=== PATIENT | male | born 1990 | race Caucasian/White ===

== ENCOUNTER 2019-12-21 08:48 | Emergency (ER) | payer OTHER, SELFPAY ==
[2019-12-21] VITALS (8 sets, daily range): BP systolic 110–163; BP diastolic 74–90; PULSE 64–99; RESP 18–22; TEMP 36.7–36.9; O2SAT 98–100; BMI 22.1
--- NOTE | 2019-12-21 08:50 | ECG_ITS ---
APPROVED REPORT Exam: Resting ECG HR:78 bpm ECG Measurements Heart Rate 78 AXES WY 124 P 74 QRSd 94 QRS 69 QT 368 T 46 QTc 419 <Conclusion> Sinus rhythm with marked sinus arrhythmia Minimal voltage criteria for LVH, may be normal variant Septal infarct, age undetermined Abnormal ECG Electronically signed by : Valdemar Castaneda, 12/24/2019 21:20:00
--- NOTE | 2019-12-21 08:50 | XR_ITS ---
PROCEDURE: XR CHEST 2V CLINICAL HISTORY: short of breath COMPARISON: No exams were available for comparison FINDINGS: No acute bony abnormalities. The cardiomediastinal silhouette and pulmonary vascularity are within normal limits. The lungs are hyperinflated, compatible with COPD. Bilaterally perihilar mildly increased bronchial wall and interstitial thickening noted, indicative of chronic bronchitis. No demonstrated consolidation, pulmonary vascular congestion or pleural effusion of the visualized lungs. Likely a small calcified nodule/granuloma is present peripherally in right lower lung. IMPRESSION: 1. No acute findings. 2. Possible COPD. Please correlate clinically. Dictated by: Ally Brownlee 12/21/2019 10:02 Electronically signed by Ally Brownlee in [place] 12/21/2019 10:02
--- NOTE | 2019-12-21 09:06 | HMH.EDGENADL ---
ED Disposition Clinical Impression: Tobacco use disorder Dyspnea Qualifiers: Dyspnea type: shortness of breath Qualified Code(s): R06.02 - Shortness of breath Disposition: Home, Self-Care Condition on Discharge: Good Instructions: DI for Shortness of Breath, How to Quit Tobacco Products Additional Instructions: You have been evaluated for shortness of breath. We have not found one particular diagnosis today. It is important that you follow-up with your primary care doctor. Return to the emergency department if you have new or worsening symptoms. Referrals: PCP,No [Primary Care Provider] - Time of Disposition: 12:05 - Critical Care Critical Care Time: No Attestation: On 12/21/19, the high probability of a clinically significant, sudden or life threatening deterioration of the following system(s) required my full and direct attention, intervention and personal management. The time I documented below is in addition to time spent performing reported procedures but includes the following listed in this critical care notation. Medical Decision Making - Medical Records Medical records reviewed: Yes: I reviewed the patient's medical records. - Ramone Inquiry Pt receiving controlled substance: No Vital Signs: 12/21/19 08:48 12/21/19 09:04 12/21/19 09:29 Temperature 98.5 F Temperature Source Oral Pulse Rate Pulse Rate [Left Radial] 99 H 78 75 Respiratory Rate 18 18 20 Blood Pressure Blood Pressure [Right Arm] 163/90 H 135/87 122/74 Blood Pressure Mean [Right Arm] 114 103 90 Blood Pressure Source Blood Pressure Source [Right Arm] Automatic Cuff Automatic Cuff Automatic Cuff Blood Pressure Position Blood Pressure Position [Right Arm] Sitting Supine Supine 02 Sat by Pulse Oximetry 100 98 99 Oxygen Delivery Method Room Air Room Air Room Air 12/21/19 09:59 12/21/19 10:30 12/21/19 10:59 Temperature Temperature Source Pulse Rate Pulse Rate [Left Radial] 66 74 66 Respiratory Rate 20 18 22 Blood Pressure Blood Pressure [Right Arm] 110/83 128/84 137/85 Blood Pressure Mean [Right Arm] 92 98 102 Blood Pressure Source Blood Pressure Source [Right Arm] Automatic Cuff Automatic Cuff Automatic Cuff Blood Pressure Position Blood Pressure Position [Right Arm] Supine Supine Supine 02 Sat by Pulse Oximetry 99 98 99 Oxygen Delivery Method Room Air Room Air Room Air 12/21/19 11:30 12/21/19 12:19 Temperature 98.0 F Temperature Source Oral Pulse Rate 64 Pulse Rate [Left Radial] 64 Respiratory Rate 18 18 Blood Pressure 130/77 Blood Pressure [Right Arm] 130/77 Blood Pressure Mean [Right Arm] 94 Blood Pressure Source Automatic Cuff Blood Pressure Source [Right Arm] Automatic Cuff Blood Pressure Position Sitting Blood Pressure Position [Right Arm] Supine 02 Sat by Pulse Oximetry 99 Oxygen Delivery Method Room Air Room Air - Lab Data Lab Results 12/21/19 08:50: WBC 9.5, RBC 5.14, Hgb 16.7, Hct 49.1, MCV 95.6 H, MCH 32.5 H, MCHC 34.0, RDW 13.3, Plt Count 264, MPV 7.4, Neut % (Auto) 69.7, Lymph % (Auto) 23.8, [place] % (Auto) 6.1, Eos % (Auto) 0.2, Baso % (Auto) 0.3, Neut # (Auto) 6.6, Lymph # (Auto) 2.3, [place] # (Auto) 0.6, Eos # (Auto) 0.0, Baso # (Auto) 0.0 12/21/19 08:50: D-Dimer < 100 12/21/19 08:50: Sodium 141, Potassium 4.1, Chloride 104, Carbon Dioxide 27, Anion Gap 14.1, BUN 11, Creatinine 0.70, Estimated Creat Clear 125, Estimated GFR 133, Est GFR ( Amer) 161, Glucose 111 H, Calcium 9.3, Troponin I < 0.01 12/21/19 10:43: Troponin I < 0.01 Result diagrams: 12/21/19 08:50 12/21/19 08:50 Orders (Tests/Meds): ED MEDICATIONS Discontinued Medications Generic Name Dose Route Start Last Admin Trade Name Kang PRN Reason Stop Dose Admin Aspirin 325 mg 12/21/19 08:51 12/21/19 09:05 Aspirin 325mg Tablet PO 12/21/19 08:52 Not Given ONCE ONE Aspirin 324 mg 12/21/19 09:04 12/21/19 09:04 Aspirin 81mg Chewable Tablet PO 12/21/19 09:05 324
[2019-12-21 09:15] LABS: Basophils % 0.3 % (0.1-2.0); Eosinophils % 0.2 % (0.1-12.0); Hematocrit 49.1 % (42.0-52.0); Hemoglobin 16.7 g/dL (14.1-18.0); Lymphocytes # 2.3 K/mm3 (0.7-4.5); Lymphocytes % 23.8 % (10-50); Mean Corpuscular Hemoglobin 32.5 pg (27.0-31.2); Mean Corpuscular Volume 95.6 fl (80-94); Mean Platelet Volume 7.4 fl (7.4-10.4); Monocytes # 0.6 K/mm3 (0.1-1.0); Monocytes % 6.1 % (1.7-9.3); Neutrophils # 6.6 K/mm3 (1.8-7.8); Neutrophils % 69.7 % (37.0-80.0); Platelet Count 264 K/mm3 (142-424); Red Blood Count 5.14 M/mm3 (4.60-6.20); Red Cell Distribution Width 13.3 % (11.5-17.5); White Blood Count 9.5 K/mm3 (4.8-10.8)
[2019-12-21 09:16] LABS: Chloride 104 mmol/L (98-107); Sodium 141 mmol/L (136-145)
[2019-12-21 09:17] LABS: Potassium 4.1 mmoL/L (3.5-5.1)
[2019-12-21 09:19] LABS: Blood Urea Nitrogen 11 mg/dl (9-20); Creatinine Clearance Estimated 125 mL/min (50-200); Estimated Glomerular Filt Rate 133 ml/min (>60); GFR (African American) 161 ML/MIN (>60)
[2019-12-21 09:20] LABS: Anion Gap 14.1 mEq/L (5-15); Calcium 9.3 mg/dl (8.4-10.2); Carbon Dioxide 27 mmol/L (22.0-30.0); Glucose 111 mg/dl (74-100)
[2019-12-21 09:32] LABS: Troponin I < 0.01 ng/ml (0.00-0.034)
[2019-12-21 09:34] LABS: D-Dimer < 100 ng/mL (0-400)
--- NOTE | 2019-12-21 09:50 | PC.NURSE ---
PT WITH RAD AT THIS TIME.
[2019-12-21 11:29] LABS: Troponin I < 0.01 ng/ml (0.00-0.034)
== END 2019-12-21 12:20 | disposition home or self-care (01) ==
PROVIDERS: Emergency Provider Emergency Medicine
DX: R06.02 Shortness of breath (principal); F17.210 Nicotine dependence, cigarettes, uncomplicated
CPT/HCPCS: 71046; 80048; 84484; 85025; 85378; 93005; 99284

== ENCOUNTER → 2019-12-22 15:40 | Outpatient (CLI) | payer OTHER, SELFPAY | PROVIDERS: PCP Family Medicine; Visit Provider Family Medicine | DX: R06.02 Shortness of breath (principal); R00.2 Palpitations; Z82.49 Family history of ischemic heart disease and other diseases of the circulatory system | CPT/HCPCS: 93225; 93226 ==

== ENCOUNTER 2019-12-27 03:44 | Emergency (ER) | payer OTHER, SELFPAY ==
[2019-12-27 03:53] VITALS: BP 152/86; PULSE 100; RESP 17; TEMP 36.9; O2SAT 100; BMI 22.1
--- NOTE | 2019-12-27 03:54 | HMH.EDGENADL ---
ED Disposition Clinical Impression: Dyspnea Qualifiers: Dyspnea type: shortness of breath Qualified Code(s): R06.02 - Shortness of breath Disposition: Home, Self-Care Condition on Discharge: Good Instructions: DI for Shortness of Breath Additional Instructions: Do not use Wellbutrin or inhaler until you speak with your physician today. Call your physician when their office opens for further instruction. Additional instructions for SHORTNESS OF BREATH: See your physician as soon as possible for further evaluation. Return immediately if worsening shortness of breath or if vomiting, chest pain, fever, coughing of blood, or passing out. Referrals: Valdemar Benitez MD [Primary Care Provider] - - Critical Care Critical Care Time: No Attestation: On 12/27/19, the high probability of a clinically significant, sudden or life threatening deterioration of the following system(s) required my full and direct attention, intervention and personal management. The time I documented below is in addition to time spent performing reported procedures but includes the following listed in this critical care notation. Medical Decision Making - Medical Records Medical records reviewed: Yes: I reviewed the patient's medical records. - Ramone Inquiry Pt receiving controlled substance: No Vital Signs: 12/27/19 03:53 Temperature 98.4 F Temperature Source Oral Pulse Rate [Right Brachial] 100 H Respiratory Rate 17 Blood Pressure [Right Arm] 152/86 H Blood Pressure Mean [Right Arm] 108 Blood Pressure Source [Right Arm] Automatic Cuff Blood Pressure Position [Right Arm] Sitting 02 Sat by Pulse Oximetry 100 Oxygen Delivery Method Room Air - Lab Data Lab results reviewed: Yes: I reviewed the patient's lab results. Lab Results 12/27/19 04:25: WBC 11.3 H, RBC 4.96, Hgb 16.1, Hct 46.1, MCV 93.0, MCH 32.5 H, MCHC 34.9, RDW 13.3, Plt Count 267, MPV 7.1 L, Neut % (Auto) 62.9, Lymph % (Auto) 26.4, [place] % (Auto) 9.7 H, Eos % (Auto) 0.8, Baso % (Auto) 0.3, Neut # (Auto) 7.1, Lymph # (Auto) 3.0, [place] # (Auto) 1.1 H, Eos # (Auto) 0.1, Baso # (Auto) 0.0 12/27/19 04:25: Sodium 143, Potassium 3.7, Chloride 106, Carbon Dioxide 28, Anion Gap 12.7, BUN 12, Creatinine 0.70, Estimated Creat Clear 125, Estimated GFR 133, Est GFR ( Amer) 161, Glucose 116 H, Calcium 9.4, Troponin I < 0.01 Result diagrams: 12/27/19 04:25 12/27/19 04:25 Orders (Tests/Meds): ORDERS Category Date Time Status Chest XR 2 view (NOT portable) [XR chest 2V] Stat Exams 12/27/19 04:02 Taken - ECG Data Tracing #1 EKG interpreted by Mina Rodríguez MD: Rhythm: sinus Rate: 84 Four States: normal Ectopy: none Conduction: normal ST Segment Changes: Nonspecific T Wave Changes: Nonspecific Q Waves: none - Reevaluation(s) Time: 05:10 Reevaluation #1: Patient states he feels improved. Medical Decision Narrative: My impression is that the patient's symptoms are most likely related to anxiety. I have advised him to not use Wellbutrin or albuterol inhaler until he contacts his physician today. General Adult HPI - General Stated complaint: SOA;Shaky Time Seen by Provider: 12/27/19 03:54 - History of Present Illness HPI narrative: The patient states that he was awakened at 2 AM by shortness of breath, tingling of his tongue, shakiness, and scratchy throat, although he says his throat does not hurt when he swallows. Says he has had a cough for the past couple of days. No fever. No chest pain or discomfort. He was seen in this emergency department on 12/21/2019 for shortness of breath. He had a thorough work-up at that time which was unremarkable. He followed up with his primary care doctor. He says he was also experiencing rapid heartbeat and had a Holter monitor done on Wednesday, but does not yet have results. He was started on Wellbutrin for smoking cessation and was given a prescription for a metered-dose inhaler. He says he has been us
--- NOTE | 2019-12-27 04:02 | XR_ITS ---
PROCEDURE: XR CHEST 2V CLINICAL HISTORY: soa Shortness of air, smoker COMPARISON: CT ABDPELW CT ABD PELVIS W/ CONTRAST from 01/05/2017 CR XR CHEST 2V from 12/21/2019 FINDINGS: The cardiomediastinal silhouette and pulmonary vascularity are within normal limits. The lungs are clear without infiltrates, suspicious nodules, or pleural effusions. There is calcified granuloma in the right lower lobe laterally. No acute bony findings IMPRESSION: No acute findings. Dictated b Judah Monahan MD 12/27/2019 07:46 Judah Monahan MD in [place] 12/27/2019 07:46
--- NOTE | 2019-12-27 04:04 | ECG_ITS ---
APPROVED REPORT Exam: Resting ECG HR:84 bpm ECG Measurements Heart Rate 84 AXES IA 142 P 83 QRSd 94 QRS 75 QT 362 T 36 QTc 427 <Conclusion> Normal sinus rhythm Nonspecific ST and T wave abnormality Abnormal ECG Electronically signed by : Sanjiv Montalvo, 12/29/2019 16:12:16
[2019-12-27 04:34] LABS: Basophils % 0.3 % (0.1-2.0); Eosinophils # 0.1 K/mm3 (0.0-0.4); Eosinophils % 0.8 % (0.1-12.0); Hematocrit 46.1 % (42.0-52.0); Hemoglobin 16.1 g/dL (14.1-18.0); Lymphocytes % 26.4 % (10-50); Mean Corpuscular HGB Conc 34.9 g/dL (31.8-35.4); Mean Corpuscular Hemoglobin 32.5 pg (27.0-31.2); Mean Platelet Volume 7.1 fl (7.4-10.4); Monocytes # 1.1 K/mm3 (0.1-1.0); Monocytes % 9.7 % (1.7-9.3); Neutrophils # 7.1 K/mm3 (1.8-7.8); Neutrophils % 62.9 % (37.0-80.0); Platelet Count 267 K/mm3 (142-424); Red Blood Count 4.96 M/mm3 (4.60-6.20); Red Cell Distribution Width 13.3 % (11.5-17.5); White Blood Count 11.3 K/mm3 (4.8-10.8)
[2019-12-27 04:37] LABS: Chloride 106 mmol/L (98-107); Potassium 3.7 mmoL/L (3.5-5.1); Sodium 143 mmol/L (136-145)
[2019-12-27 04:40] LABS: Anion Gap 12.7 mEq/L (5-15); Blood Urea Nitrogen 12 mg/dl (9-20); Calcium 9.4 mg/dl (8.4-10.2); Carbon Dioxide 28 mmol/L (22.0-30.0); Creatinine Clearance Estimated 125 mL/min (50-200); Estimated Glomerular Filt Rate 133 ml/min (>60); GFR (African American) 161 ML/MIN (>60); Glucose 116 mg/dl (74-100)
[2019-12-27 04:58] LABS: Troponin I < 0.01 ng/ml (0.00-0.034)
[2019-12-27 05:41] VITALS: BP 125/82; PULSE 79; RESP 17; TEMP 36.9; O2SAT 100
== END 2019-12-27 05:43 | disposition home or self-care (01) ==
PROVIDERS: Emergency Provider Emergency Medicine; PCP Family Medicine
DX: F41.9 Anxiety disorder, unspecified (principal); F17.210 Nicotine dependence, cigarettes, uncomplicated
CPT/HCPCS: 71046; 80048; 84484; 85025; 93005; 99282; 99283

== ENCOUNTER 2019-12-27 17:14 | Emergency (ER) | payer OTHER, SELFPAY ==
--- NOTE | 2019-12-27 17:07 | ECG_ITS ---
APPROVED REPORT Exam: Resting ECG HR:102 bpm ECG Measurements Heart Rate 102 AXES RI 126 P 83 QRSd 94 QRS 75 QT 350 T 18 QTc 456 <Conclusion> Sinus tachycardia Voltage criteria for left ventricular hypertrophy Nonspecific ST and T wave abnormality Abnormal ECG Electronically signed by : Valdemar Castaneda, 12/30/2019 08:31:02
[2019-12-27 17:14] VITALS: BP 153/86; PULSE 94; RESP 20; TEMP 36.9; O2SAT 100; BMI 22.1
--- NOTE | 2019-12-27 17:27 | XR_ITS ---
PROCEDURE: XR CHEST PORTABLE CLINICAL HISTORY: cough COMPARISON: No exams were available for comparison FINDINGS: The cardiomediastinal silhouette and pulmonary vascularity are within normal limits. No lobar consolidation or collapse. Faint nodularity is noted in the right lower lung zone possibly due to summation artifact from overlapping vessels and may be confirmed with follow-up. No acute bony abnormalities. IMPRESSION: No acute finding. Minimal nodularity right lung base. Consider follow-up to confirm stability Dictated b Judah Monahan MD 12/27/2019 18:30 Judah Monahan MD in [place] 12/27/2019 18:30
[2019-12-27 17:44] VITALS: BP 144/74; PULSE 89; O2SAT 99
--- NOTE | 2019-12-27 17:53 | HMH.EDDIZZ ---
ED Disposition Clinical Impression: Vasovagal syncope, Generalized anxiety disorder Disposition: Home, Self-Care Condition on Discharge: Good Instructions: DI for Syncope in Adults (Fainting) Referrals: Valdemar Benitez MD [Primary Care Provider] - Time of Disposition: 19:03 - Critical Care Critical Care Time: No Attestation: On 12/27/19, the high probability of a clinically significant, sudden or life threatening deterioration of the following system(s) required my full and direct attention, intervention and personal management. The time I documented below is in addition to time spent performing reported procedures but includes the following listed in this critical care notation. Medical Decision Making - Medical Records Medical records reviewed: Yes: I reviewed the patient's medical records. - Ramone Inquiry Pt receiving controlled substance: No Vital Signs: 12/27/19 17:14 12/27/19 17:44 12/27/19 18:25 Temperature 98.5 F Temperature Source Oral Pulse Rate [Right] 94 H 89 88 Respiratory Rate 20 18 Blood Pressure [Right Arm] 153/86 H 144/74 H 126/73 Blood Pressure Mean [Right Arm] 108 97 90 Blood Pressure Source [Right Arm] Automatic Cuff Automatic Cuff Automatic Cuff 02 Sat by Pulse Oximetry 100 99 100 Oxygen Delivery Method Room Air Room Air Room Air - Lab Data Lab Results 12/27/19 17:41: WBC 11.4 H, RBC 4.97, Hgb 16.1, Hct 46.2, MCV 93.1, MCH 32.3 H, MCHC 34.7, RDW 13.4, Plt Count 285, MPV 7.4, Neut % (Auto) 65.5, Lymph % (Auto) 26.5, [place] % (Auto) 7.5, Eos % (Auto) 0.2, Baso % (Auto) 0.2, Neut # (Auto) 7.5, Lymph # (Auto) 3.0, [place] # (Auto) 0.9, Eos # (Auto) 0.0, Baso # (Auto) 0.0 12/27/19 17:41: D-Dimer < 100 12/27/19 17:41: Sodium 140, Potassium 3.6, Chloride 103, Carbon Dioxide 27, Anion Gap 13.6, BUN 8 L D, Creatinine 0.80, Estimated Creat Clear 109, Estimated GFR 114, Est GFR ( Amer) 138, Glucose 90 D, Calcium 9.8, Troponin I < 0.01 Result diagrams: 12/27/19 17:41 12/27/19 17:41 Orders (Tests/Meds): ED MEDICATIONS Generic Name Dose Route Start Last Admin Trade Name Freq PRN Reason Stop Dose Admin Sodium Chloride 1,000 mls @ 999 mls/hr 12/27/19 17:45 12/27/19 17:45 Sod Chlor 0.9% 1000ml Bag IV 12/27/19 18:45 999 mls/hr .Q1H1M OTIS Administration Sodium Chloride 10 ml 12/27/19 17:28 Sodium Chloride 0.9% 10ml Vial IV 01/26/20 17:27 NEEDED PRN to Dilute Lorazepam inj Discontinued Medications Generic Name Dose Route Start Last Admin Trade Name Freq PRN Reason Stop Dose Admin Lorazepam 1 mg 12/27/19 17:28 12/27/19 17:44 Ativan 2mg/Ml Vial IV 12/27/19 17:29 1 mg ONCE ONE Administration ORDERS Category Date Time Status Troponin I Q3H Lab 12/27/19 20:30 Ordered Troponin I Q3H Lab 12/27/19 23:30 Ordered - Radiology Data #1 Image(s): Chest Image Reviewed: Yes I reviewed the patient's radiology results, Yes I have reviewed radiologist's interpretation IMPRESSION: No acute finding. Minimal nodularity right lung base. Consider follow-up to confirm stability - ECG Data Tracing #1 ECG initial impression date: 12/27/19 ECG initial impression time: 17:09 - Reevaluation(s) Time: 19:02 Reevaluation #1: On reevaluation, the patient is feeling better. He is much less anxious. Repeat neurologic exam is normal. Patient is ambulatory without any dizziness. Patient is to follow-up with PCP. Given strict return precautions. Verbalized understanding. Medical Decision Narrative: This is a 29-year-old male presenting to the emergency department with a syncopal episode. Patient has been having these symptoms since earlier today. He was taken off his Wellbutrin secondary to the symptoms. Patient is alert and appropriate at this time. Normal neurologic exam. Patient is very anxious on my initial examination. I do believe this could be contributing to his symptoms. Work-up will be initiated. Dizzy HPI
[2019-12-27 17:54] LABS: Basophils % 0.2 % (0.1-2.0); Eosinophils % 0.2 % (0.1-12.0); Hematocrit 46.2 % (42.0-52.0); Hemoglobin 16.1 g/dL (14.1-18.0); Lymphocytes % 26.5 % (10-50); Mean Corpuscular HGB Conc 34.7 g/dL (31.8-35.4); Mean Corpuscular Hemoglobin 32.3 pg (27.0-31.2); Mean Corpuscular Volume 93.1 fl (80-94); Mean Platelet Volume 7.4 fl (7.4-10.4); Monocytes # 0.9 K/mm3 (0.1-1.0); Monocytes % 7.5 % (1.7-9.3); Neutrophils # 7.5 K/mm3 (1.8-7.8); Neutrophils % 65.5 % (37.0-80.0); Platelet Count 285 K/mm3 (142-424); Red Blood Count 4.97 M/mm3 (4.60-6.20); Red Cell Distribution Width 13.4 % (11.5-17.5); White Blood Count 11.4 K/mm3 (4.8-10.8)
[2019-12-27 18:02] LABS: Anion Gap 13.6 mEq/L (5-15); Blood Urea Nitrogen 8 mg/dl (9-20); Calcium 9.8 mg/dl (8.4-10.2); Carbon Dioxide 27 mmol/L (22.0-30.0); Chloride 103 mmol/L (98-107); Creatinine Clearance Estimated 109 mL/min (50-200); Estimated Glomerular Filt Rate 114 ml/min (>60); GFR (African American) 138 ML/MIN (>60); Glucose 90 mg/dl (74-100); Potassium 3.6 mmoL/L (3.5-5.1); Sodium 140 mmol/L (136-145)
[2019-12-27 18:19] LABS: Troponin I < 0.01 ng/ml (0.00-0.034)
[2019-12-27 18:25] VITALS: BP 126/73; PULSE 88; RESP 18; O2SAT 100
[2019-12-27 18:37] LABS: D-Dimer < 100 ng/mL (0-400)
[2019-12-27 19:10] VITALS: BP 128/74; PULSE 65; RESP 16; TEMP 36.6; O2SAT 98
== END 2019-12-27 19:12 | disposition home or self-care (01) ==
PROVIDERS: Emergency Provider Emergency Medicine; PCP Family Medicine
DX: R55 Syncope and collapse (principal); F41.9 Anxiety disorder, unspecified; F17.210 Nicotine dependence, cigarettes, uncomplicated
CPT/HCPCS: 71045; 80048; 84484; 85025; 85378; 93005; 96365; 96375; 99284

== ENCOUNTER 2019-12-29 13:53 | Emergency (ER) | payer OTHER, SELFPAY ==
--- NOTE | 2019-12-29 14:10 | HMH.EDUTC ---
[facility] [place] Clinical Impression: Vertigo Disposition: Home, Self-Care Condition on Discharge: Good Instructions: DI for Vertigo Prescriptions: Meclizine HCl [Meclizine 25mg Tab] 25 mg PO TID PRN 10 Days #30 tab PRN Reason: Dizziness Transmission Status: Pending to [id number] Referrals: Valdemar Benitez MD [Primary Care Provider] - Time of Disposition: 14:22 Medical Decision Making - Ramone Inquiry Pt receiving controlled substance: No Vital Signs: 12/29/19 14:14 Temperature 98.3 F Temperature Source Oral Pulse Rate [Right Brachial] 79 Respiratory Rate 20 Blood Pressure [Right Arm] 133/81 Blood Pressure Mean [Right Arm] 98 Blood Pressure Source [Right Arm] Automatic Cuff Blood Pressure Position [Right Arm] Sitting 02 Sat by Pulse Oximetry 98 Oxygen Delivery Method Room Air - Lab Data Lab results reviewed: Yes: I reviewed the patient's lab results. Medical Decision Narrative: Patient has been seen at ER 3 times in past week, each time with normal cardiac workup. Has seen PCP and is awaiting Holter monitor results. I have reviewed records from these visits. [facility] [place] - General Stated complaint: light-headed Time Seen by Provider: 12/29/19 14:10 - History of Present Illness Provider Complaint: Sent home from work today with lightheadedness. States that it has actually been going on for a while. Has seen PCP and had Holter monitor, labs. Isn't sure of results yet. Has had some mild nasal congestion and cough. No headache. Feels off balance and just not right. Dizzy when he bends forward. Dizzy when he rolls over. No fever. Denies ear pain, sore throat, vomiting, diarrhea. No known PMH. No problems with diabetes, blood pressure that he is aware of. - Related Data Previous Rx's Medication Instructions Recorded Meclizine HCl [Meclizine 25mg Tab] 25 mg PO TID PRN 10 Days #30 tab 12/29/19 Allergies Allergy/AdvReac Type Severity Reaction Status Date / Time No Known Allergies Allergy Verified 08/26/18 23:06 [facility] History - Hepatitis A Screen Attestation statement:: This patient has been screened for Hepatitis A risk factors. Medical History: Denies:: Cancer, Diabetes Mellitus Type 1, Diabetes Mellitus Type 2, MRSA Amputation: No Fractures: No - Social History Smoking Status: Current every day smoker Tobacco Type: cigarettes # Packs/Day (cigarettes): 2 Alcohol Intake: never Occupational Status: employed Housing: house Household Members: significant other Family Hx:: Cancer, Diabetes ROS Obtained: Yes All systems reviewed & no additional complaints - Respiratory Respiratory: Yes as per HPI, Yes cough - Neurologic Neurologic: Reports unsteadiness, Reports dizziness Physical Exam - General General appearance: alert, in no apparent distress - Head Head exam: atraumatic, normocephalic, normal inspection - Eye Eye exam: Present: normal appearance, PERRL, EOMI - ENT ENT exam: Present: normal exam, normal oropharynx, mucous membranes moist, TM's normal bilaterally, normal external ear exam - Neck Neck exam: Present: normal inspection, full ROM, trachea midline. Absent: meningismus, lymphadenopathy - Chest Chest inspection: Present: normal inspection, symmetric chest wall rise. Absent: tenderness - Respiratory Respiratory exam: Present: normal lung sounds bilaterally. Absent: respiratory distress - Cardiovascular Cardiovascular exam: Present: regular rate, normal rhythm. Absent: JVD - Abdominal Exam Abdominal exam: Present: soft, normal bowel sounds. Absent: distention, tenderness, guarding - Extremities Exam Extremities exam: Present: normal inspection, full ROM, normal capillary refill. Absent: calf tenderness - Back Exam Back exam: Present: normal inspection. Absent: tenderness - Neurological Exam Neurological exam: Present: alert, oriented X3 - Psychiatric Psychiatric exam: Present: normal affect, normal mood
[2019-12-29 14:14] VITALS: BP 133/81; PULSE 79; RESP 20; TEMP 36.8; O2SAT 98; BMI 22.1
[2019-12-29 14:33] VITALS: BP 133/81; PULSE 79; RESP 20; TEMP 36.8; O2SAT 98
== END 2019-12-29 14:35 | disposition home or self-care (01) ==
PROVIDERS: Emergency Provider Physician Assistant; PCP Family Medicine
DX: R42 Dizziness and giddiness (principal); F17.210 Nicotine dependence, cigarettes, uncomplicated
CPT/HCPCS: 99201

== ENCOUNTER → 2020-01-17 07:44 | Outpatient (CLI) | payer OTHER, SELFPAY ==
--- NOTE | 2020-01-17 | CA_ITS ---
APPROVED REPORT Exam: Exercise Treadmill Technologist: Ibeth Yancey, Ht: 5 ft 3 in Wt: 128 lbs BSA: 1.60 m2 HR: 68 bpm BP: 122/71 mmHg Rhythm: NSR,VOLTAGE CRITERIA FOR LVH,ST-T ABNS INFERIORLY AND LATERALLY Medical History Medical History: SVT, Smoking Medications: Metoprolol,,,,, Cardiac Risk Factors: Smoking, FHX of CAD Stress Test Details Test: Roberto HR Resting HR: 75 bpm Max Heart Rate (APMHR): 191 bpm Max HR Achieved: 147 bpm Target HR (85% APMHR): 162 bpm % of APMHR: 76 Recovery HR: 118 bpm BP Resting BP: 122.0/71.0 mmHg Max BP: 148.0/76.0 mmHg Recovery BP: 142.0/76.0 mmHg ECG Resting ECG: NSR,VOLTAGE CRITERIA FOR LVH,ST-T ABNS INFERIORLY AND LATERALLY Clinical Exercise duration: 10:09 min Highest Stage Achieved: Exercise capacity: 12.8 METs Stress ECG Conclusion EXERCISED 10:09 ON ROBERTO PROTOCOL STOPPING DUE TO SOA AND LEG FATIGUE. MAX HR 147 BPM WHICH IS 77% OF PM FOR AGE. MAX BP 148/76. METS = 12.8. TEST STOPPED DUE TO SOA AND LEG FATIGUE. FLEETING CP AT PEAK EXERCISE. NO ARRHYTHMIA/ECTOPY. EXAGGERATION OF BASELINE T-T ABNS WITH EXERCISE. ATYPICAL CHEST PAIN. EQUIVOCAL EKG CHANGES. BLUNTED HEART RATE RESPONSE ON METOPROLOL. GXT ONLY. NO IMAGING. Test Summary REST . . . . . . . Standing REST . . . . . . . Sitting REST 03:58 0.0 0.0 75 . 122/ 71 . . Stage 1 01:00 10.0 1.7 95 . . . . Stage 1 02:00 10.0 1.7 96 . . . . Stage 1 03:00 10.0 1.7 92 . 130/ 80 . . Stage 2 01:00 12.0 2.5 100 . . . . Stage 2 02:00 12.0 2.5 99 . . . . Stage 2 03:00 12.0 2.5 104 . 140/ 80 . . Stage 3 01:00 14.0 3.4 113 . . . . Stage 3 02:00 14.0 3.4 115 . . . . Stage 3 03:00 14.0 3.4 120 . 148/ 76 . . Stage 4 01:00 16.0 4.2 139 . . . . Stage 4 01:09 16.0 4.2 142 . . . Stop exercise at 10:09 RECOVERY 01:00 0.0 0.0 115 . . . . RECOVERY 02:00 0.0 0.0 91 . 142/ 76 . . RECOVERY 03:00 0.0 0.0 81 . 130/ 87 . . RECOVERY 04:00 0.0 0.0 82 . 139/ 81 . . RECOVERY 05:00 0.0 0.0 75 . 122/ 76 . . RECOVERY 05:19 0.0 0.0 77 . 122/ 76 . . Electronically signed by : Valdemar Castaneda, 01/20/2020 07:11:27
--- NOTE | 2020-01-17 07:47 | CA_ITS ---
APPROVED REPORT EXAM: Comprehensive 2D, Doppler, and color-flow Echocardiogram Planer Off Bearer: Rhea Nelson RVT Ht: 5 ft 3 in Wt: 128lbs BSA: 1.60 BP: 145/78 mmHg Indications: SVT ON HOLTER, SOA,DIZZINESS,PALPS,SMOKER 2D Dimensions LVOT 1.97 cm (M/F) 1.5-2.5 M-Mode Dimensions RVDd 2.95 cm (0.9-2.6) LVDd 4.19 cm (3.5-5.7) LVDs 2.68 cm (3.5-5.7) IVSd 0.91 cm (0.6-1.1) PWd 0.94 cm (0.6-1.1) EF (Teich) 66.10% FS 36.00% EDV (Teich) 78.10 mL ESV (Teich) 26.50 mL LV Diastology E/A Ratio 1.66 Mitral Valve MV A Velocity 64.00 (40-130 cm/s) Left Ventricle Left atrium is normal size, left ventricle is normal size, there is no concentric left ventricular hypertrophy, visually estimated ejection fraction 55% with no regional wall motion abnormality, diastolic parameters are within normal range. Right Ventricle Right atrium and right ventricular normal size and contractility. Aortic Valve Aortic valve is grossly normal, there is no aortic stenosis or aortic insufficiency. Mitral Valve Mitral valve is grossly normal, there is trace mitral regurgitation. Tricuspid Valve Tricuspid valve is grossly normal, there is trace tricuspid regurgitation. Tricuspid regurgitation jet velocity is inadequate for calculation of the right ventricular systolic pressure. Pulmonic Valve Pulmonic valve is grossly normal. Great Vessels Aortic root is normal size. Pericardium No significant pericardial effusion noted. Conclusion 1. Normal left ventricular size, preserved left ventricular systolic function, visually estimated ejection fraction 55% with no regional wall motion abnormality, diastolic parameters are within normal range. 2. Trace mitral and tricuspid regurgitation. 3. No significant pericardial effusion noted. Electronically signed by : Parker Russ, 01/18/2020 09:53:49
== END ==
PROVIDERS: PCP Family Medicine; Visit Provider Nurse Practitioner
DX: I47.1 Supraventricular tachycardia (principal); R06.02 Shortness of breath
CPT/HCPCS: 93017; 93306; 94060; 94726; 94729

== ENCOUNTER 2020-03-11 16:42 | Emergency (ER) | payer OTHER, SELFPAY ==
--- NOTE | 2020-03-11 17:00 | HMH.EDUTC ---
[facility] [place] Disposition Clinical Impression: Sinusitis Qualifiers: Sinusitis location: unspecified location Chronicity: acute Recurrence: non-recurrent Qualified Code(s): J01.90 - Acute sinusitis, unspecified Disposition: Home, Self-Care Condition on Discharge: Good Instructions: Sinusitis, DI for Sinusitis Additional Instructions: Drink plenty of fluids. Take tylenol or ibuprofen for pain or fever. Take the medications as directed. Follow up with your regular doctor. GO TO THE ER FOR ANY WORSENING SYMPTOMS FOLLOW THE DIRECTIONS ON THE COVID-19 HAND OUT THAT WE GAVE YOU REGARDING SELF-ISOLATION UNTIL YOU KNOW YOUR COVID-19 RESULTS Prescriptions: Azithromycin [Z-Rene 250mg Tab*] 250 mg PO UD DOSE PK #6 tab Transmission Status: Received by [facility] #[id number] Referrals: Valdemar Benitez MD [Primary Care Provider] - Forms: Work/School Release Time of Disposition: 17:24 Medical Decision Making - Medical Records Medical records reviewed: No: I reviewed the patient's medical records. - Ramone Inquiry Pt receiving controlled substance: No Vital Signs: 03/11/20 17:02 03/11/20 17:26 Temperature 98.9 F 98.9 F Temperature Source Oral Oral Pulse Rate 78 Pulse Rate [Radial] 78 Respiratory Rate 16 16 Blood Pressure 120/84 Blood Pressure [Right Arm] 120/84 Blood Pressure Mean [Right Arm] 96 Blood Pressure Source Automatic Cuff Blood Pressure Source [Right Arm] Automatic Cuff Blood Pressure Position Sitting Blood Pressure Position [Right Arm] Sitting 02 Sat by Pulse Oximetry 100 Oxygen Delivery Method Room Air Room Air Orders (Tests/Meds): ORDERS Category Date Time Status Covid-19 Nasal PCR Sendout Juan Stat Lab 03/11/20 17:[address] [facility] [place] HPI - General Stated complaint: ears, throat Time Seen by Provider: 03/11/20 17:00 - History of Present Illness Provider Complaint: He states that for the past 3 days he has had sinus congestion and a dry cough. He thinks that he has a sinus infection. - Related Data Home Medications Medication Instructions Recorded Confirmed metoprolol succinate 25 mg 25 mg PO DAILY tab 02/12/20 02/12/20 tablet,extended release 24 hr Previous Rx's Medication Instructions Recorded Azithromycin [Z-Rene 250mg Tab*] 250 mg PO UD DOSE PK #6 tab 03/11/20 Allergies Allergy/AdvReac Type Severity Reaction Status Date / Time No Known Allergies Allergy Verified 02/12/20 09:08 [facility] History - Hepatitis A Screen Attestation statement:: This patient has been screened for Hepatitis A risk factors. I have reviewed the patient's past medical history: Yes Medical History: Reports:: Palpitations Denies:: Cancer, Diabetes Mellitus Type 1, Diabetes Mellitus Type 2, MRSA Amputation: No Fractures: No - Social History Smoking Status: Current every day smoker Tobacco Type: cigarettes # Packs/Day (cigarettes): 2 Alcohol Intake: never Occupational Status: employed Housing: house Household Members: significant other Family Hx:: Cancer, Diabetes Comment: Mother-Palpitations ROS Obtained: Yes All systems reviewed & no additional complaints - Constitutional Constitutional: Reports chills, Denies fever(s), Reports poor appetite, Reports malaise - Eyes Eyes: Denies eye discharge - ENT Ears, Nose, Mouth, and Throat: Reports as per HPI - Cardiovascular Cardiovascular: Denies chest pain - Respiratory Respiratory: No chest congestion, Yes cough Physical Exam - General General appearance: alert, in no apparent distress - Head Head exam: atraumatic, normocephalic, normal inspection - Eye Eye exam: Present: normal appearance, PERRL, EOMI - ENT ENT exam: Present: mucous membranes moist, normal external ear exam - Expanded ENT Exam TM/Canal exam: Bilateral TM: erythema, bulging Mouth exam: Present: normal external inspection Teeth exam: Present: normal inspection Throat exam: Present: tonsillar erythema, tons
[2020-03-11 17:02] VITALS: BP 120/84; PULSE 78; RESP 16; TEMP 37.2; O2SAT 100; BMI 23.0
[2020-03-11 17:26] VITALS: BP 120/84; PULSE 78; RESP 16; TEMP 37.2; O2SAT 100
== END 2020-03-11 17:29 | disposition home or self-care (01) ==
PROVIDERS: Emergency Provider Nurse Practitioner Family; PCP Family Medicine
DX: J01.90 Acute sinusitis, unspecified (principal); Z20.828 Contact with and (suspected) exposure to other viral communicable diseases; R00.2 Palpitations; F17.210 Nicotine dependence, cigarettes, uncomplicated
CPT/HCPCS: 99201; U0003; U0004

== ENCOUNTER 2020-05-22 11:16 | Emergency (ER) | payer OTHER, SELFPAY ==
[2020-05-22 11:25] VITALS: BP 131/66; PULSE 76; RESP 18; TEMP 36.8; O2SAT 99; BMI 24.1
--- NOTE | 2020-05-22 11:42 | HMH.EDUTC ---
[facility] [place] [facility] [place] Clinical Impression: Bronchitis Otitis media Qualifiers: Otitis media type: unspecified Laterality: bilateral Qualified Code(s): H66.93 - Otitis media, unspecified, bilateral Disposition: Home, Self-Care Condition on Discharge: Good Instructions: Middle Ear Infection, Acute Bronchitis Additional Instructions: *Monitor Temp, Over the counter Motrin or Tylenol as directed/as needed Tylenol every 4 hours and Motrin every 6 hours (as long as your family doctor has told you that you can take it) for fever or pain. and straight to ER if unable to lower temp less than 101.0 after medication given *Warm salt water gargles may help to soothe the throat *Throat Lozenges *Warm fluids like tea with honey may help to soothe the throat *Sleep elevated *Humidifier/Vaporizer Take medication as prescribed Return if needed Follow up IMMEDIATELY for new or worsening symptoms or no Noticeable improvement over the next 48-72 hours. 911 for difficulty breathing or swallowing Prescriptions: Cefdinir [Omnicef 300mg Capsule] 300 mg PO BID #20 cap Transmission Status: Received by [id number] Referrals: Valdemar Benitez MD [Primary Care Provider] - As needed Time of Disposition: 11:53 Medical Decision Making - Ramone Inquiry Pt receiving controlled substance: No Ramone was queried for this patient: No Vital Signs: 05/22/20 11:25 05/22/20 11:58 Temperature 98.2 F 98.2 F Temperature Source Oral Pulse Rate 76 Pulse Rate [Right Brachial] 76 Respiratory Rate 18 18 Blood Pressure 131/66 Blood Pressure [Right Arm] 131/66 Blood Pressure Mean [Right Arm] 87 Blood Pressure Source [Right Arm] Automatic Cuff Blood Pressure Position [Right Arm] Sitting 02 Sat by Pulse Oximetry 99 Oxygen Delivery Method Room Air [facility] [place] [facility] [place]PI - General Stated complaint: ear pain, congestion Time Seen by Provider: 05/22/20 11:42 Mode of Arrival: Ambulatory Source of Information: Patient Limitations: No Limitations Description of Symptoms (Recalled from Triage Doc. by RN): PATIENT C/O CHEST CONGESTION AND BILATERAL EAR PAIN X 2 DAYS HEENT Symptoms (Recalled from RN notes): Yes Resp Symptoms (Recalled from RN notes): No Skin Symptoms (Recalled from RN notes): No MS Symptoms (Recalled from RN notes): No Functional Status (Recalled from RN notes): WNL - History of Present Illness Provider Complaint: Patient states that he is an everyday smoker and usually gets bronchitis around this time every year State that she has been having non productive cough, sinus pressure and drainage along feeling of pressure in both ears that has got worse over the last couple of days States that today he was still feeling like that so he come in Denies known exposure to COVID - Related Data Home Medications Medication Instructions Recorded Confirmed metoprolol succinate 25 mg 25 mg PO DAILY tab 02/12/20 05/22/20 tablet,extended release 24 hr Previous Rx's Medication Instructions Recorded Cefdinir [Omnicef 300mg Capsule] 300 mg PO BID #20 cap 05/22/20 Allergies Allergy/AdvReac Type Severity Reaction Status Date / Time No Known Allergies Allergy Verified 02/12/20 09:08 - Worker's Comp Is this a Worker's Comp case?: No [facility] History - Hepatitis A Screen Drug use history?: No High risk sexual behaviors?: No History of sexually transmitted infection?: No Currently employed?: No Childcare worker?: No Do you have indoor plumbing?: Yes Do you have electricity?: Yes Attestation statement:: This patient has been screened for Hepatitis A risk factors. Medical History: Reports:: Palpitations Denies:: Cancer, Diabetes Mellitus Type 1, Diabetes Mellitus Type 2, MRSA Amputation: No Fractures: No - Social History Smoking Status: Current every day smoker Tobacco Type: cigarettes # Packs/Day (cigarettes): 1 Alcohol Intake: never Occupational Status: other Housing: house Household Members: significant
[2020-05-22 11:58] VITALS: BP 131/66; PULSE 76; RESP 18; TEMP 36.8; O2SAT 99
== END 2020-05-22 12:00 | disposition home or self-care (01) ==
PROVIDERS: Emergency Provider Nurse Practitioner; PCP Family Medicine
DX: J20.9 Acute bronchitis, unspecified (principal); H66.93 Otitis media, unspecified, bilateral; R00.2 Palpitations; F17.210 Nicotine dependence, cigarettes, uncomplicated
CPT/HCPCS: 99201

== ENCOUNTER 2020-05-25 23:05 | Emergency (ER) | payer OTHER, BC, SELFPAY ==
[2020-05-25 23:05] VITALS: BP 167/93; PULSE 100; RESP 16; TEMP 36.9; O2SAT 99; BMI 21.6
--- NOTE | 2020-05-25 23:18 | XR_ITS ---
PROCEDURE: XR CHEST 2V CLINICAL HISTORY: cp COMPARISON: CR XR CHEST 2V from 12/21/2019 CR XR CHEST 2V from 12/27/2019 CR XR CHEST PORTABLE from 12/27/2019 FINDINGS: The cardiomediastinal silhouette and pulmonary vascularity are within normal limits. The lungs are clear without infiltrates, suspicious nodules, or pleural effusions. There couple tiny calcified right hilar nodes and there is a small calcified granuloma right costophrenic angle and this was seen previously. No acute bony abnormalities. IMPRESSION: No acute findings. Dictated by: Dr. Timothy Schilling MD 05/26/2020 09:36 Dr. Timothy Schilling MD in [place] 05/26/2020 09:36
--- NOTE | 2020-05-25 23:25 | ECG_ITS ---
APPROVED REPORT Exam: Resting ECG HR:86 bpm ECG Measurements Heart Rate 86 AXES VT 132 P 79 QRSd 88 QRS 74 QT 350 T 32 QTc 418 Conclusion Normal sinus rhythm with sinus arrhythmia Left ventricular hypertrophy with repolarization abnormality Abnormal ECG Electronically signed by : Valdemar Castaneda, 05/26/2020 13:34:16
--- NOTE | 2020-05-25 23:29 | HMH.EDCP ---
ED Disposition Clinical Impression: Costalchondritis Disposition: Home, Self-Care Condition on Discharge: Good Additional Instructions: You were seen on an emergency basis. It is very important that you follow up with your primary care provider and/or specialist as we discussed within 2 days. All labs and imaging were obtained and interpreted here to rule out life threatening emergencies, but your final results should be reviewed by your primary doctor at your follow up appointment. Please return to the emergency department if any of your symptoms worsen, or if they do not improve as we discussed. Prescriptions: Naproxen Sodium [Anaprox Ds] 550 mg PO BID #20 tab Transmission Status: Pending to [id number] Referrals: Valdemar Benitez MD [Primary Care Provider] - - Critical Care Critical Care Time: No Attestation: On , the high probability of a clinically significant, sudden or life threatening deterioration of the following system(s) required my full and direct attention, intervention and personal management. The time I documented below is in addition to time spent performing reported procedures but includes the following listed in this critical care notation. Medical Decision Making - Medical Records Medical records reviewed: Yes: I reviewed the patient's medical records. - Ramone Inquiry Pt receiving controlled substance: No Vital Signs: 05/25/20 23:05 05/25/20 23:35 05/26/20 00:48 Temperature 98.5 F Temperature Source Oral Pulse Rate [Left Radial] 100 H 85 86 Respiratory Rate 16 16 16 Blood Pressure [Right Arm] 167/93 H 134/79 135/71 Blood Pressure Mean [Right Arm] 117 97 92 Blood Pressure Source [Right Arm] Automatic Cuff Automatic Cuff Automatic Cuff Blood Pressure Position [Right Arm] Supine Supine Supine 02 Sat by Pulse Oximetry 99 98 98 Oxygen Delivery Method Room Air Room Air Room Air - Lab Data Lab Results 05/25/20 23:05: WBC 13.2 H, RBC 5.53, Hgb 17.4, Hct 51.6, MCV 93.4, MCH 31.4 H, MCHC 33.6, RDW 13.4, Plt Count 290, MPV 7.8, Neut % (Auto) 54.1, Lymph % (Auto) 36.2, [place] % (Auto) 8.1, Eos % (Auto) 0.7, Baso % (Auto) 0.8, Neut # (Auto) 7.1, Lymph # (Auto) 4.8 H, [place] # (Auto) 1.1 H, Eos # (Auto) 0.1, Baso # (Auto) 0.1 05/25/20 23:05: Sodium 139, Potassium 3.4 L, Chloride 100, Carbon Dioxide 30, Anion Gap 12.4, BUN 14, Creatinine 0.90, Estimated Creat Clear 101, Estimated GFR 100, Est GFR ( Amer) 121, Glucose 86, Calcium 10.0, Total Bilirubin 0.7, Direct Bilirubin 0.2, Conjugated Bilirubin 0.0, Indirect Bilirubin 0.5, Unconjugated Bilirubin 0.5, AST 26, ALT 20, Alkaline Phosphatase 71, Troponin I < 0.01, Total Protein 8.2, Albumin 4.9 05/26/20 02:00: Troponin I < 0.01 Result diagrams: 05/25/20 23:05 05/25/20 23:05 Orders (Tests/Meds): ED MEDICATIONS Discontinued Medications Generic Name Dose Route Start Last Admin Trade Name Leonardoq PRN Reason Stop Dose Admin Aspirin 324 mg 05/25/20 23:18 05/25/20 23:15 Aspirin 81mg Chewable Tablet PO 05/25/20 23:19 324 mg ONCE ONE Administration Ketorolac Tromethamine 30 mg 05/25/20 23:18 05/25/20 23:24 Ketorolac 30mg/Ml Vial IV 05/25/20 23:19 30 mg ONCE ONE Administration ORDERS Category Date Time Status Chest XR 2 view (NOT portable) [XR chest 2V] Stat Exams 05/25/20 23:18 Taken Troponin I Q3H Lab 05/26/20 06:00 Ordered Medical Decision Narrative: 29-year-old male presenting with chest pain. Nontoxic afebrile, hemodynamically stable, oxygenating well on room air. cxr negative for acute disease. EKG nonischemic without arrhythmia. White blood cell count does show mild leukocytosis but patient had recent diagnosis of bronchitis. CMP unremarkable. Troponins are flat. Asymptomatic after 30 mg of IV Toradol. Clinically, this is costochondritis. PERC negative. Prescribe Anaprox and have him follow-up with PCP. Chest Pain HPI - General Chief Complaint: Chest Pain Stated Complaint: C
[2020-05-25 23:35] VITALS: BP 134/79; PULSE 85; RESP 16; O2SAT 98
[2020-05-26] LABS: Basophils # 0.1 K/mm3 (0-0.2); Basophils % 0.8 % (0.1-2.0); Eosinophils # 0.1 K/mm3 (0.0-0.4); Eosinophils % 0.7 % (0.1-12.0); Hematocrit 51.6 % (42.0-52.0); Hemoglobin 17.4 g/dL (14.1-18.0); Lymphocytes # 4.8 K/mm3 (0.7-4.5); Lymphocytes % 36.2 % (10-50); Mean Corpuscular HGB Conc 33.6 g/dL (31.8-35.4); Mean Corpuscular Hemoglobin 31.4 pg (27.0-31.2); Mean Corpuscular Volume 93.4 fl (80-94); Mean Platelet Volume 7.8 fl (7.4-10.4); Monocytes # 1.1 K/mm3 (0.1-1.0); Monocytes % 8.1 % (1.7-9.3); Neutrophils # 7.1 K/mm3 (1.8-7.8); Neutrophils % 54.1 % (37.0-80.0); Platelet Count 290 K/mm3 (142-424); Red Blood Count 5.53 M/mm3 (4.60-6.20); Red Cell Distribution Width 13.4 % (11.5-17.5); White Blood Count 13.2 K/mm3 (4.8-10.8)
[2020-05-26 00:04] LABS: Alanine Aminotransferase 20 U/L (12-78); Albumin Level 4.9 g/dl (3.5-5.0); Alkaline Phosphatase 71 U/L (38-126); Anion Gap 12.4 mEq/L (5-15); Aspartate Amino Transferase 26 U/L (17-59); Bilirubin,Direct 0.2 mg/dl (0.0-0.4); Bilirubin,Indirect 0.5 mg/dL (0.0-0.9); Bilirubin,Total 0.7 mg/dl (0.2-1.3); Bilirubin,Unconjugated 0.5 mg/dL (0.0-1.1); Blood Urea Nitrogen 14 mg/dl (9-20); Carbon Dioxide 30 mmol/L (22.0-30.0); Chloride 100 mmol/L (98-107); Creatinine Clearance Estimated 101 mL/min (50-200); Estimated Glomerular Filt Rate 100 ml/min (>60); GFR (African American) 121 ML/MIN (>60); Glucose 86 mg/dl (74-100); Potassium 3.4 mmoL/L (3.5-5.1); Sodium 139 mmol/L (136-145); Total Protein,Serum 8.2 g/dl (6.3-8.2)
[2020-05-26 00:16] LABS: Troponin I < 0.01 ng/ml (0.00-0.034)
[2020-05-26 00:48] VITALS: BP 135/71; PULSE 86; RESP 16; O2SAT 98
[2020-05-26 02:33] LABS: Troponin I < 0.01 ng/ml (0.00-0.034)
[2020-05-26 03:02] VITALS: BP 121/70; PULSE 73; RESP 14; TEMP 36.7; O2SAT 97
== END 2020-05-26 03:05 | disposition home or self-care (01) ==
PROVIDERS: Emergency Provider Physician Assistant; PCP Family Medicine
DX: M94.0 Chondrocostal junction syndrome [Tietze] (principal); I48.91 Unspecified atrial fibrillation; R00.2 Palpitations; F17.210 Nicotine dependence, cigarettes, uncomplicated; Z79.899 Other long term (current) drug therapy
CPT/HCPCS: 71046; 80048; 80076; 84484; 85025; 93005; 96374; 99283

== ENCOUNTER 2020-05-27 09:47 | Emergency (ER) | payer OTHER, BC, SELFPAY ==
[2020-05-27 09:50] VITALS: BP 118/67; PULSE 89; RESP 20; TEMP 36.9; O2SAT 99; BMI 21.6
--- NOTE | 2020-05-27 10:13 | HMH.EDUTC ---
[facility] [place] Disposition Clinical Impression: Low back pain Qualifiers: Chronicity: unspecified Back pain laterality: left Sciatica presence: without sciatica Qualified Code(s): M54.5 - Low back pain Disposition: Home, Self-Care Condition on Discharge: Good Instructions: Low Back Pain, DI for Low Back Pain, Methocarbamol, DI for Muscle Spasm Additional Instructions: *Naproxen as prescribed with meal as needed for pain/inflammation *Not additional anti-inflammatory like motrin, aleve, advil with the above amount of Naproxen. You can still take Tylenol every 4 hours as needed if you need something else for pain *Ice 20 minutes every 2 hours for the first 48 hours after the initial injury followed by moist heat every 20 minutes 3-4 times a day to affected area *Muscle relaxer as prescribed as needed for muscle spasms but remember, it WILL cause drowsiness You cannot take it and drive, operate machinery or care for small children. *Keep this area active, no movement leads to more stiffness, However take it easy and avoid heavy lifting pushing or pulling *Follow up with you family doctor if no improvement for further treatment Return if needed Straight to ER If any life threatening symptoms Prescriptions: methocarbamoL [Methocarbamol 500mg Tablet] 500 mg PO BID PRN #10 tab PRN Reason: Muscle Spasm Transmission Status: Received by [id number] Referrals: Valdemar Benitez MD [Primary Care Provider] - As needed Time of Disposition: 10:24 Medical Decision Making - Ramone Inquiry Pt receiving controlled substance: No Ramone was queried for this patient: No Vital Signs: 05/27/20 09:50 05/27/20 10:30 Temperature 98.5 F 98.5 F Temperature Source Oral Pulse Rate 89 Pulse Rate [Right Brachial] 89 Respiratory Rate 20 20 Blood Pressure 118/67 Blood Pressure [Right Arm] 118/67 Blood Pressure Mean [Right Arm] 84 Blood Pressure Source [Right Arm] Automatic Cuff Blood Pressure Position [Right Arm] Sitting 02 Sat by Pulse Oximetry 99 Oxygen Delivery Method Room Air [facility] [place] HPI - General Stated complaint: back pain Time Seen by Provider: 05/27/20 10:13 Mode of Arrival: Ambulatory Source of Information: Patient Limitations: No Limitations Description of Symptoms (Recalled from Triage Doc. by RN): PATIENT C/O LEFT LOWER BACK PAIN THAT STARTED LAST NIGHT AND WAS WORSE THIS MORNING HEENT Symptoms (Recalled from RN notes): No Resp Symptoms (Recalled from RN notes): No Skin Symptoms (Recalled from RN notes): No MS Symptoms (Recalled from RN notes): Yes Functional Status (Recalled from RN notes): WNL - History of Present Illness Provider Complaint: Patient state that he was moving some furniture yesterday and bent over to sweet pickled fruit maker something and felt a pull in his left lower back area States that he feels like he is having muscle spasms in his left lower back Denies loss of control of bowel or bladder denies radiation of pain State that pain is worse when he moves or bends over - Related Data Previous Rx's Medication Instructions Recorded methocarbamoL [Methocarbamol 500mg 500 mg PO BID PRN #10 tab 05/27/20 Tablet] Allergies Allergy/AdvReac Type Severity Reaction Status Date / Time No Known Allergies Allergy Verified 02/12/20 09:08 - Worker's Comp Is this a Worker's Comp case?: No [facility] History - Hepatitis A Screen Drug use history?: No High risk sexual behaviors?: No History of sexually transmitted infection?: No Currently employed?: No Childcare worker?: No Do you have indoor plumbing?: Yes Do you have electricity?: Yes Attestation statement:: This patient has been screened for Hepatitis A risk factors. I have reviewed the patient's past medical history: Yes Medical History: Reports:: Palpitations Denies:: Cancer, Diabetes Mellitus Type 1, Diabetes Mellitus Type 2, MRSA Amputation: No Fractures: No - Social History Smoking Status: Current every day smoker Tobacco Type: cigarett
[2020-05-27 10:30] VITALS: BP 118/67; PULSE 89; RESP 20; TEMP 36.9; O2SAT 99
[2020-05-28 21:02] LABS: Apearance,Urine Clear (Clear); Bilirubin,Urine Negative (Negative); Blood, Urine Trace (Negative); Color,Urine Yellow (Yellow); Glucose,Urine (UA) Negative (Negative); Ketones,Urine Negative (Negative); Protein,Urine Trace (Negative); Specific Gravity, Urine 1.025 (1.005-1.030); UTC Leukocyte Esterase,Urine Negative (Negative); UTC Nitrate,Urine Negative (Negative); Urobilinogen,Urine 2 EU/dl (0.2)
== END 2020-05-27 10:31 | disposition home or self-care (01) ==
PROVIDERS: Emergency Provider Nurse Practitioner; PCP Family Medicine
DX: M54.5 Low back pain (principal); X50.0XXA Overexertion from strenuous movement or load, initial encounter; R00.2 Palpitations; F17.210 Nicotine dependence, cigarettes, uncomplicated
CPT/HCPCS: 81003; 99202; G0463

== ENCOUNTER → 2020-06-13 06:42 | Outpatient (CLI) | payer OTHER, BC, SELFPAY | PROVIDERS: PCP Family Medicine; Visit Provider Nurse Practitioner Family | DX: R06.02 Shortness of breath (principal); R42 Dizziness and giddiness; R94.31 Abnormal electrocardiogram [ECG] [EKG] | CPT/HCPCS: 75574; Q9967 ==

== ENCOUNTER → 2020-07-15 06:20 | Outpatient (CLI) | payer BC, SELFPAY ==
[2020-07-15 07:11] VITALS: BMI 23.0
--- NOTE | 2020-07-15 09:21 | CT_ITS ---
PROCEDURE: CT ANGIO CORONARY ARTERY CLINCAL INDICATION: Chest pain COMPARISON: No exams were available for comparison TECHNIQUE: Initially the patient arrived on 06/[address] coronary angiography. Bradycardia was attempted with a total 15 mg of IV metoprolol. Patient's heart rate fluctuated from 42-92. Patient did seem anxious. Oral sedation was not able to be given as the patient did not have a stock driver. Images were obtained but were less than optimal quality due to irregular heart rate. The patient was instructed to come back for repeat exam. 10 mg Valium p.o. was given the night of and the morning the procedure. On the day of the repeat exam, patient's heart rate was in the 90s. 50 mg p.o. metoprolol was given with overall no significant change in heart rate. A total of 10 mg of IV metoprolol was then given. The patient's heart rate did come down to the mid 60s. During the exam the patient's heart rate fluctuated from the mid 60s to low 90s. Two runs were performed. A 3rd run was not performed due to the contrast load. FINDINGS: There is considerable misregistration artifact. Both sets of data are interrogated. The coronary artery anatomy is normal. The left main coronary artery has an unremarkable appearance. The LAD has an unremarkable appearance. First diagonal also appears unremarkable. The diagnosed distal to this region however not well demonstrated. Grossly unremarkable appearance of the proximal aspect of the circumflex artery. The right coronary artery originates in its proper location. Misregistration artifact however inhibits optimal evaluation of the RCA. There is a tricuspid aortic valve. Normal heart size. No evidence of central pulmonary embolus. There is a 3 mm subpleural nodule in the left lower lobe nonspecific. There are mild degenerative changes in the thoracic spine. IMPRESSION: Limited exam due to cardiac dysrhythmia. The left main coronary artery and LAD have an unremarkable appearance as does the proximal aspect of the circumflex. The RCA is not adequately interrogated due to misregistration artifact. Dictated by: Judah Monahan MD 07/17/2020 09:25 Judah Monahan MD in [place] 07/17/2020 09:25
== END ==
PROVIDERS: PCP Family Medicine; Visit Provider Physician Assistant
DX: R07.9 Chest pain, unspecified (principal); R42 Dizziness and giddiness; R06.02 Shortness of breath; R94.31 Abnormal electrocardiogram [ECG] [EKG]
CPT/HCPCS: 75574

== ENCOUNTER → 2020-07-24 12:57 | Outpatient (CLI) | payer OTHER, BC, SELFPAY ==
[2020-07-24 13:11] LABS: Basophils % 0.3 % (0.1-2.0); Eosinophils # 0.1 K/mm3 (0.0-0.4); Eosinophils % 0.8 % (0.1-12.0); Hematocrit 48.8 % (42.0-52.0); Hemoglobin 15.8 g/dL (14.1-18.0); Lymphocytes # 2.4 K/mm3 (0.7-4.5); Lymphocytes % 25.4 % (10-50); Mean Corpuscular HGB Conc 32.4 g/dL (31.8-35.4); Mean Corpuscular Hemoglobin 30.4 pg (27.0-31.2); Mean Corpuscular Volume 93.8 fl (80-94); Mean Platelet Volume 7.1 fl (7.4-10.4); Monocytes # 0.7 K/mm3 (0.1-1.0); Monocytes % 7.6 % (1.7-9.3); Neutrophils # 6.2 K/mm3 (1.8-7.8); Neutrophils % 65.9 % (37.0-80.0); Platelet Count 302 K/mm3 (142-424); Red Blood Count 5.21 M/mm3 (4.60-6.20); Red Cell Distribution Width 13.1 % (11.5-17.5); White Blood Count 9.4 K/mm3 (4.8-10.8)
[2020-07-24 13:57] LABS: Chloride 104 mmol/L (98-107); Potassium 5.1 mmoL/L (3.5-5.1); Sodium 140 mmol/L (136-145)
[2020-07-24 14:00] LABS: Blood Urea Nitrogen 8 mg/dl (9-20); Estimated Glomerular Filt Rate 114 ml/min (>60); GFR (African American) 138 ML/MIN (>60)
[2020-07-24 14:01] LABS: Anion Gap 13.1 mEq/L (5-15); Calcium 10.1 mg/dl (8.4-10.2); Carbon Dioxide 28 mmol/L (22.0-30.0); Glucose 118 mg/dl (74-100)
== END ==
PROVIDERS: Visit Provider Internal Medicine
DX: R07.9 Chest pain, unspecified (principal)
CPT/HCPCS: 36415; 80048; 85025

== ENCOUNTER 2020-07-25 08:31 | Day surgery (SDC) | payer OTHER, BC, SELFPAY ==
[2020-07-25] VITALS (15 sets, daily range): BP systolic 90–165; BP diastolic 41–100; PULSE 78–103; RESP 12–21; TEMP 36.8; O2SAT 95–99; BMI 22.8
--- NOTE | 2020-07-25 | IR_ITS ---
APPROVED REPORT Patient Location: Outpatient Reservations Sales Supervisor: JOSEPH Beltre RT (R) PROCEDURES Selective coronary angiogram INDICATION Abnormal CTA, Nondiagnostic noninvasive testing with persistent chest pain Informed consent was obtained prior to the procedure. COMPLICATIONS NONE Estimated Blood Loss: LESS THAN 10 ML TECHNIQUE One percent lidocaine used to anesthetize the right anterior aspect of the wrist. The right radial artery was accessed via the Seldinger technique. A 6 Ecuadorean sheath was placed in the right radial artery. 2.5 mg of verapamil, 800 mcg of nitroglycerin, 1mg Lidocaine and 5000 U Heparin were given through the arterial sheath. The trap catheter was also used to perform left heart catheterization, left ventriculogram and selective coronary angiogram. At the end of the procedure the sheath was removed good hemostasis was achieved using Traclet band, patient was transferred to the postop holding area in stable condition. ANGIOGRAPHIC RESULTS The left main artery Normal The left anterior descending artery Normal The circumflex artery Codominant normal The right coronary artery Codominant normal The LAWSON ventriculogram reveals Not performed The left ventricular end-diastolic pressure Not measured IMPRESSION Normal coronary arteries PLAN 1. Evaluation of noncardiac chest pain Electronically signed by : Bobby Myrick, 07/25/2020 10:27:11
== END 2020-07-25 13:21 | disposition home or self-care (01) ==
LOC: CATHLAB 08:33
PROVIDERS: PCP Family Medicine; Visit Provider Internal Medicine
DX: R07.9 Chest pain, unspecified (principal); R94.31 Abnormal electrocardiogram [ECG] [EKG]; R55 Syncope and collapse; Z72.0 Tobacco use; I10 Essential (primary) hypertension; I48.91 Unspecified atrial fibrillation
CPT/HCPCS: 93458; 99152; C1725; C1769; J1644; Q9967

== ENCOUNTER 2020-07-25 22:11 | Emergency (ER) | payer BC, OTHER, SELFPAY ==
[2020-07-25 22:17] VITALS: BP 153/89; PULSE 93; RESP 16; TEMP 36.8; O2SAT 98; BMI 23.0
--- NOTE | 2020-07-25 22:37 | CT_ITS ---
Procedure: CT ANGIO UE RT CLINICAL HISTORY: cold numb hand after heart cath COMPARISON: No exams were available for comparison TECHNIQUE: IV Contrast: 100ml Isovue 370 Axial images obtained with sagittal and coronal reformats. All CT scans at the facility use one or more dose reduction, viz: automated exposure control, ma/kV adjustment per patient size (including targeted exams where dose is matched to indication, i.e. head), or iterative reconstruction technique. FINDINGS: The right brachiocephalic artery, right subclavian artery, right brachial artery and proximal and mid radial and ulnar arteries have an unremarkable appearance. The radial and ulnar arteries are very small distally and are not well delineated at the wrist felt to be related to bolus timing and the small caliber of the vessels. If the wrist is the area of clinical concern then duplex ultrasound may provide further evaluation. No bony or soft tissue abnormalities apparent. IMPRESSION: No acute findings. No occlusions or dissections or significant stenosis apparent. The radial and ulnar arteries are very small at wrist and not well delineated and may be better evaluated with duplex sonography if clinically warranted. Dictated by: Judah Monahan MD 07/26/2020 05:42 Judah Monahan MD in [place] 07/26/2020 05:42
--- NOTE | 2020-07-25 22:38 | HMH.EDGENADL ---
ED Disposition Clinical Impression: Paresthesia Disposition: Home, Self-Care Condition on Discharge: Good Instructions: DI for Cellulitis -- Adult Referrals: Valdemar Benitez MD [Primary Care Provider] - - Critical Care Critical Care Time: No Attestation: On 07/25/20, the high probability of a clinically significant, sudden or life threatening deterioration of the following system(s) required my full and direct attention, intervention and personal management. The time I documented below is in addition to time spent performing reported procedures but includes the following listed in this critical care notation. Medical Decision Making - Medical Records Medical records reviewed: Yes: I reviewed the patient's medical records. - Ramone Inquiry Pt receiving controlled substance: No Vital Signs: 07/25/20 22:17 07/25/20 22:42 Temperature 98.2 F Temperature Source Oral Pulse Rate [Left] 93 H 94 H Respiratory Rate 16 16 Blood Pressure [Left Arm] 153/89 H 140/92 H Blood Pressure Mean [Left Arm] 110 108 Blood Pressure Source [Left Arm] Automatic Cuff Automatic Cuff Blood Pressure Position [Left Arm] Sitting Supine 02 Sat by Pulse Oximetry 98 99 Oxygen Delivery Method Room Air Room Air - Lab Data Lab Results 07/25/20 23:06: WBC 13.0 H D, RBC 5.16, Hgb 15.6, Hct 48.5, MCV 93.9, MCH 30.1, MCHC 32.1, RDW 13.2, Plt Count 318, MPV 7.1 L, Neut % (Auto) 68.0, Lymph % (Auto) 26.5, [place] % (Auto) 4.3, Eos % (Auto) 0.9, Baso % (Auto) 0.5, Neut # (Auto) 8.8 H, Lymph # (Auto) 3.4, [place] # (Auto) 0.6, Eos # (Auto) 0.1, Baso # (Auto) 0.1 07/25/20 23:06: Sodium 143, Potassium 3.6 D, Chloride 106, Carbon Dioxide 30, Anion Gap 10.6, BUN 7 L, Creatinine 0.70, Estimated Creat Clear 130, Estimated GFR 133, Est GFR ( Amer) 161, Glucose 122 H, Calcium 9.8 Result diagrams: 07/25/20 23:06 07/25/20 23:06 Orders (Tests/Meds): ED MEDICATIONS Discontinued Medications Generic Name Dose Route Start Last Admin Trade Name Kang PRN Reason Stop Dose Admin Morphine Sulfate 4 mg 07/25/20 23:49 07/25/20 23:52 Morphine 4mg/Ml Syringe IV 07/25/20 23:50 4 mg ONCE ONE Administration ORDERS Category Date Time Status CT angio UE RT Stat Cat Scan 07/25/20 22:37 Ordered Medical Decision Narrative: I evaluated the patient in cqjr-[id number]-scal exam. On my exam he was in no acute distress nontoxic-appearing he did have cooler extremity in the right hand than the left and decreased sensation. Does have a radial pulse on initial exam. However due to possibility of vascular injury CTA of upper extremity was obtained. CTA shows no arterial occlusion or injury, on reexam he does have increased strength in the hand. 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 Given strict return precautions for symptoms if they get worse over the weekend General Adult HPI - General Chief complaint: Extremity Problem,Nontraumatic Stated complaint: Heart Cath 0304 R Arm Numb Time Seen by Provider: 07/25/20 22:30 Mode of Arrival: Ambulatory Limitations: No Limitations Description of Symptoms (Recalled from ER Triage Doc. by RN): Pt had a right radial heart cath this morning and states his right arm has been numb since, pt has palpable radial pulse and normal cap refil. - History of Present Illness HPI narrative: 29-year-old male presents with right hand numbness. He says that he had a heart cath this morning and since then his hand has been cold and numb and now he has numbness in his mid and upper extremity on the right side. He says he does not have decreased weakness. It was a heart cath that entrance was through his right radial artery. Denies fever chills active bleeding or any other injuries Onset (ago): day(s) (1) Radiatio
[2020-07-25 22:42] VITALS: BP 140/92; PULSE 94; RESP 16; O2SAT 99
[2020-07-25 23:13] LABS: Basophils # 0.1 K/mm3 (0-0.2); Basophils % 0.5 % (0.1-2.0); Eosinophils # 0.1 K/mm3 (0.0-0.4); Eosinophils % 0.9 % (0.1-12.0); Hematocrit 48.5 % (42.0-52.0); Hemoglobin 15.6 g/dL (14.1-18.0); Lymphocytes # 3.4 K/mm3 (0.7-4.5); Lymphocytes % 26.5 % (10-50); Mean Corpuscular HGB Conc 32.1 g/dL (31.8-35.4); Mean Corpuscular Hemoglobin 30.1 pg (27.0-31.2); Mean Corpuscular Volume 93.9 fl (80-94); Mean Platelet Volume 7.1 fl (7.4-10.4); Monocytes # 0.6 K/mm3 (0.1-1.0); Monocytes % 4.3 % (1.7-9.3); Neutrophils # 8.8 K/mm3 (1.8-7.8); Platelet Count 318 K/mm3 (142-424); Red Blood Count 5.16 M/mm3 (4.60-6.20); Red Cell Distribution Width 13.2 % (11.5-17.5)
[2020-07-25 23:16] LABS: Chloride 106 mmol/L (98-107)
[2020-07-25 23:17] LABS: Potassium 3.6 mmoL/L (3.5-5.1); Sodium 143 mmol/L (136-145)
[2020-07-25 23:19] LABS: Blood Urea Nitrogen 7 mg/dl (9-20); Creatinine Clearance Estimated 130 mL/min (50-200); Estimated Glomerular Filt Rate 133 ml/min (>60); GFR (African American) 161 ML/MIN (>60)
[2020-07-25 23:20] LABS: Anion Gap 10.6 mEq/L (5-15); Calcium 9.8 mg/dl (8.4-10.2); Carbon Dioxide 30 mmol/L (22.0-30.0); Glucose 122 mg/dl (74-100)
[2020-07-26 00:27] VITALS: BP 138/87; PULSE 90; RESP 16; TEMP 36.8; O2SAT 99
== END 2020-07-26 00:29 | disposition home or self-care (01) ==
PROVIDERS: Emergency Provider Emergency Medicine; PCP Family Medicine
DX: R20.2 Paresthesia of skin (principal); I48.91 Unspecified atrial fibrillation; I10 Essential (primary) hypertension; F17.210 Nicotine dependence, cigarettes, uncomplicated
CPT/HCPCS: 73206; 80048; 85025; 96374; 99283; Q9967

== ENCOUNTER 2020-07-29 17:28 | Emergency (ER) | payer OTHER, BC, SELFPAY ==
[2020-07-29 17:42] VITALS: BP 140/87; PULSE 81; RESP 14; TEMP 36.6; O2SAT 100; BMI 21.8
--- NOTE | 2020-07-29 18:09 | HMH.EDUTC ---
[facility] [place] Clinical Impression: Acute bronchitis Qualifiers: Bronchitis organism: unspecified organism Qualified Code(s): J20.9 - Acute bronchitis, unspecified Disposition: Home, Self-Care Condition on Discharge: Good Instructions: DI for Acute Bronchitis Additional Instructions: Drink plenty of fluids. Take tylenol for pain or fever. Return if you begin to have difficulty breathing. Follow up with your regular doctor. GO TO THE ER FOR ANY WORSENING SYMPTOMS Prescriptions: Benzonatate [Tessalon Perle 100mg Cap] 100 mg PO TIDP PRN #30 cap PRN Reason: Cough Transmission Status: Received by [id number] Azithromycin [Z-Rene 250mg Tab*] 250 mg PO UD DOSE PK #6 tab Transmission Status: Received by [id number] Referrals: Valdemar Benitez MD [Primary Care Provider] - Time of Disposition: 18:13 Medical Decision Making - Medical Records Medical records reviewed: No: I reviewed the patient's medical records. - Ramone Inquiry Pt receiving controlled substance: No Vital Signs: 07/29/20 17:42 07/29/20 18:14 Temperature 97.8 F 98 F Temperature Source Tympanic Pulse Rate 77 Pulse Rate [Right] 81 Respiratory Rate 14 12 Blood Pressure 132/85 Blood Pressure [Right Arm] 140/87 Blood Pressure Mean [Right Arm] 104 Blood Pressure Source [Right Arm] Automatic Cuff Blood Pressure Position [Right Arm] Sitting 02 Sat by Pulse Oximetry 100 Oxygen Delivery Method Room Air [facility] [place] - General Stated complaint: Chest congestion,cough Time Seen by Provider: 07/29/20 18:09 Mode of Arrival: Ambulatory Source of Information: Patient Limitations: No Limitations Description of Symptoms (Recalled from Triage Doc. by RN): COUGH AND CONGESTION FOR THREE WEEKS. HEENT Symptoms (Recalled from RN notes): Yes (SINUS CONGESTION) Resp Symptoms (Recalled from RN notes): Yes (COUGH) Skin Symptoms (Recalled from RN notes): No MS Symptoms (Recalled from RN notes): No Functional Status (Recalled from RN notes): NA - History of Present Illness Provider Complaint: He states that for the past 1 week he has had sinus congestion, cough, bilateral ear pain. He denies any known contact with someone that has covid-19. - Related Data Home Medications Medication Instructions Recorded Confirmed metoprolol succinate 25 mg 25 mg PO DAILY 05/28/20 07/25/20 tablet,extended release 24 hr Previous Rx's Medication Instructions Recorded Azithromycin [Z-Rene 250mg Tab*] 250 mg PO UD DOSE PK #6 tab 07/29/20 Benzonatate [Tessalon Perle 100mg 100 mg PO TIDP PRN #30 cap 07/29/20 Cap] Allergies Allergy/AdvReac Type Severity Reaction Status Date / Time No Known Allergies Allergy Verified 07/29/20 17:49 - Worker's Comp Is this a Worker's Comp case?: No [facility] History - Hepatitis A Screen Drug use history?: No High risk sexual behaviors?: No History of sexually transmitted infection?: No Currently employed?: No Childcare worker?: No Do you have indoor plumbing?: Yes Do you have electricity?: Yes Attestation statement:: This patient has been screened for Hepatitis A risk factors. I have reviewed the patient's past medical history: Yes Medical History: Reports:: Atrial Fibrillation, Hypertension, Palpitations Denies:: Cancer, Diabetes Mellitus Type 1, Diabetes Mellitus Type 2, Internal Pacemaker, MRSA, Seizures Other Surgeries: No: Pacemaker Amputation: No Fractures: No - Social History Smoking Status: Never smoker Tobacco Type: cigarettes # Packs/Day (cigarettes): 2 Alcohol Intake: never Occupational Status: employed Housing: house Household Members: none Family Hx:: Stroke Comment: Mother-Palpitations ROS Obtained: Yes All systems reviewed & no additional complaints - Constitutional Constitutional: Denies chills, Denies fever(s), Reports poor appetite, Reports malaise - Eyes Eyes: Denies eye discharge - ENT Ears, Nose, Mouth, and Throat: Denies dizziness, Denies jackie
[2020-07-29 18:14] VITALS: BP 132/85; PULSE 77; RESP 12; TEMP 36.6
== END 2020-07-29 18:15 | disposition home or self-care (01) ==
PROVIDERS: Emergency Provider Nurse Practitioner Family; PCP Family Medicine
DX: J20.9 Acute bronchitis, unspecified (principal); I48.91 Unspecified atrial fibrillation; I10 Essential (primary) hypertension; R00.2 Palpitations; Z79.899 Other long term (current) drug therapy
CPT/HCPCS: 99202; G0463

== ENCOUNTER → 2020-07-30 13:55 | Outpatient (CLI) | payer OTHER, BC, SELFPAY ==
--- NOTE | 2020-07-30 13:57 | CA_ITS ---
APPROVED REPORT Laterality: Unilateral right Instrumentation Chemist: Anna Marie Buenrostro RCS, RVS Comments S/P cardiac cath 1 week ago with residule pain Findings Spectral Doppler Analysis reveals normal arterial flow in the radial artery. Radial veins diplayed compete compressions with phasic flow. No evidence of av fistula nor pseudo aneurysm. Conclusion Spectral Doppler Analysis reveals normal arterial flow in the radial artery. Radial veins diplayed compete compressions with phasic flow. No evidence of av fistula nor pseudo aneurysm. Electronically signed by : Judah Monahan MD 07/30/2020 18:02:37
== END ==
PROVIDERS: PCP Family Medicine; Visit Provider Urology
DX: M79.641 Pain in right hand (principal)
CPT/HCPCS: 93931

== ENCOUNTER → 2020-08-21 12:22 | Outpatient (CLI) | payer BC, SELFPAY ==
--- NOTE | 2020-08-21 12:27 | XR_ITS ---
PROCEDURE: XR CHEST 2V CLINICAL HISTORY: SOA COMPARISON: CR XR CHEST 2V from 12/27/2019 CR XR CHEST PORTABLE from 12/27/2019 CR XR CHEST 2V from 05/25/2020 FINDINGS: The cardiomediastinal silhouette and pulmonary vascularity are within normal limits. The lungs are clear without infiltrates, suspicious nodules, or pleural effusions. Multiple calcified granulomas are noted bilaterally. No significant interval change compared to prior study. No acute bony abnormalities. IMPRESSION: No acute cardiopulmonary process. Dictated by: Kiya Roberts 08/21/2020 15:33 Kiya Roberts in OV 08/21/2020 15:33
== END ==
PROVIDERS: PCP Nurse Practitioner Family; Visit Provider Nurse Practitioner Family
DX: R06.02 Shortness of breath (principal)
CPT/HCPCS: 71046

== ENCOUNTER 2021-01-31 18:30 | Emergency (ER) | payer BC, SELFPAY ==
[2021-01-31 20:20] VITALS: PULSE 79; RESP 12; TEMP 36.5; O2SAT 97; BMI 21.6
--- NOTE | 2021-01-31 20:21 | HMH.EDUTC ---
[facility] [place] Disposition Clinical Impression: Exposure to COVID-19 virus Disposition: Home, Self-Care Condition on Discharge: Good Instructions: DI for COVID-19 (Suspected or Confirmed ), Preventing the Spread of Coronavirus Discharge Instructions Additional Instructions: Drink plenty of fluids. Take tylenol for pain or fever. Return if you begin to have difficulty breathing. Follow up with your regular doctor. GO TO THE ER FOR ANY WORSENING SYMPTOMS Quarantine until you know the results of your covid-19 test. If it is positive, the health department should call you and give you further instructions about your length of Quarantine and other things. Notify your school or workplace of your results and follow their instructions regarding return to work/school. Referrals: Charlotte Recinos PA [Primary Care Provider] - Forms: Work/School Release Time of Disposition: 20:22 Medical Decision Making - Medical Records Medical records reviewed: No: I reviewed the patient's medical records. - Ramone Inquiry Pt receiving controlled substance: No Vital Signs: 01/31/21 20:20 01/31/21 20:22 Temperature 97.7 F 97.7 F Temperature Source Oral Pulse Rate 79 Pulse Rate [Left] 79 Respiratory Rate 12 12 Blood Pressure 156/88 H 02 Sat by Pulse Oximetry 97 [facility] [place] HPI - General Stated complaint: covid test Time Seen by Provider: 01/31/21 20:21 - History of Present Illness Provider Complaint: He reports that he has been exposed to covid-19 around 3 days ago. He denies any symptoms. - Related Data Previous Rx's Medication Instructions Recorded metoprolol succinate 50 mg 50 mg PO BID #180 tab 08/13/20 tablet,extended release 24 hr cyclobenzaprine 10 mg tablet 10 mg PO TID PRN #60 tab 10/03/20 amoxicillin 875 mg-potassium 1 tab PO BID 10 Days #20 tab 10/31/20 clavulanate 125 mg tablet prednisone 20 mg tablet 20 mg PO BID #10 tab 10/31/20 buspirone 15 mg tablet See Rx Instructions .ROUTE 01/29/21 .COMPLEX #30 tab Allergies Allergy/AdvReac Type Severity Reaction Status Date / Time No Known Allergies Allergy Verified 10/31/20 13:44 [facility] History - Hepatitis A Screen Attestation statement:: This patient has been screened for Hepatitis A risk factors. I have reviewed the patient's past medical history: Yes Medical History: Reports:: Anxiety, Atrial Fibrillation, Hypertension, Palpitations Denies:: Cancer, Diabetes Mellitus Type 1, Diabetes Mellitus Type 2, Internal Pacemaker, MRSA, Seizures Other Surgeries: Yes: No Previous Surgery, Cardiac Catheterization. No: Pacemaker Amputation: No Fractures: No - Social History Smoking Status: Current every day smoker Tobacco Type: cigarettes # Packs/Day (cigarettes): 1 Alcohol Intake: current Alcohol Intake Frequency:: holidays/special occasions only Substance Use Type: denies use Occupational Status: employed Housing: house Household Members: none - Psychiatric History Pschychiatric History:: Reports:: Anxiety Family Hx:: Stroke, Cancer, Thyroid Disorder, Hypertension, Asthma Comment: Mother-Palpitations ROS Obtained: Yes All systems reviewed & no additional complaints - Constitutional Constitutional: Reports system reviewed and no additional complaints, except as docu - ENT Ears, Nose, Mouth, and Throat: Reports system reviewed and no additional complaints, except as docu - Cardiovascular Cardiovascular: Reports system reviewed and no additional complaints, except as docu - Respiratory Respiratory: Reports system reviewed and no additional complaints, except as docu - Gastrointestinal Gastrointestingal: Reports: system reviewed and no additional complaints, except as docu Physical Exam - General General appearance: alert, in no apparent distress - Head Head exam: atraumatic, normocephalic, normal inspection - Eye Eye exam: Present: normal appearance, PERRL, EOMI - ENT ENT exam: Present: normal exam, normal
[2021-01-31 20:22] VITALS: BP 156/88; PULSE 79; RESP 12; TEMP 36.5
== END 2021-01-31 20:37 | disposition home or self-care (01) ==
PROVIDERS: Emergency Provider Nurse Practitioner Family; PCP Physician Assistant
DX: Z20.822 Contact with and (suspected) exposure to COVID-19 (principal); I10 Essential (primary) hypertension; F41.9 Anxiety disorder, unspecified; R00.2 Palpitations; I48.0 Paroxysmal atrial fibrillation; F17.210 Nicotine dependence, cigarettes, uncomplicated
CPT/HCPCS: 99202; C9803; G0463; U0003; U0005

== ENCOUNTER 2021-07-24 23:04 | Emergency (ER) | payer BC, SELFPAY ==
[2021-07-24 23:05] VITALS: BP 122/94; PULSE 100; RESP 20; TEMP 36.8; O2SAT 98; BMI 24.3
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
[2021-07-24 23:31] LABS: Microscopic, Urine URINE MICROSCOPIC (MICROSCOPIC)
[2021-07-24 23:34] LABS: Appearance,Urine CLEAR (Clear); Basophils # 0.3 K/mm3 (0-0.2); Basophils % 2.8 % (0.1-2.0); Bilirubin,Urine Negative (Negative); Blood, Urine TRACE-I (Negative); Color,Urine YELLOW (Yellow); Eosinophils # 0.1 K/mm3 (0.0-0.4); Eosinophils % 0.7 % (0.1-12.0); Glucose,Urine (UA) Negative (Negative); Hematocrit 50.5 % (42.0-52.0); Hemoglobin 16.8 g/dL (14.1-18.0); Ketones,Urine Negative (Negative); Leukocyte Esterase,Urine Negative (Negative); Lymphocytes # 3.6 K/mm3 (0.7-4.5); Lymphocytes % 35.3 % (10-50); Mean Corpuscular HGB Conc 33.3 g/dL (31.8-35.4); Mean Corpuscular Hemoglobin 31.6 pg (27.0-31.2); Mean Corpuscular Volume 94.9 fl (80-94); Mean Platelet Volume 7.7 fl (7.4-10.4); Monocytes # 0.8 K/mm3 (0.1-1.0); Monocytes % 7.2 % (1.7-9.3); Neutrophils # 5.6 K/mm3 (1.8-7.8); Nitrate,Urine Negative (Negative); PH,Urine 6.5 (5.0-8.5); Platelet Count 335 K/mm3 (142-424); Protein,Urine Negative (Negative); Red Blood Count 5.32 M/mm3 (4.60-6.20); Red Cell Distribution Width 13.4 % (11.5-17.5); Specific Gravity, Urine 1.015 (1.005-1.030); White Blood Count 10.3 K/mm3 (4.8-10.8)
[2021-07-24 23:38] LABS: Chloride 98 mmol/L (98-107); Potassium 3.2 mmoL/L (3.5-5.1); Sodium 139 mmol/L (136-145)
[2021-07-24 23:41] LABS: Alanine Aminotransferase 29 U/L (12-78); Albumin Level 4.8 g/dl (3.5-5.0); Albumin/Globulin Ratio 1.6 (1.1-1.8); Alkaline Phosphatase 65 U/L (38-126); Anion Gap 13.2 mEq/L (5-15); Aspartate Amino Transferase 29 U/L (17-59); Bilirubin,Total 0.8 mg/dl (0.2-1.3); Blood Urea Nitrogen 11 mg/dl (9-20); Carbon Dioxide 31 mmol/L (22.0-30.0); Creatinine Clearance Estimated 119 mL/min (50-200); Estimated Glomerular Filt Rate 114 ml/min (>60); GFR (African American) 137 ML/MIN (>60); Total Protein,Serum 7.8 g/dl (6.3-8.2)
[2021-07-24 23:42] LABS: Glucose 63 mg/dl (74-100)
[2021-07-25 00:13] LABS: Bacteria,Urine Trace /lpf; Squamous Epithelial Cell,Urine Occasional #/hpf (0-5)
--- NOTE | 2021-07-25 00:15 | HMH.EDBACK ---
ED Disposition Clinical Impression: Lumbar back pain Disposition: Home, Self-Care Condition on Discharge: Good Instructions: DI for Low Back Pain Additional Instructions: ice and see pcp for follow up next week Prescriptions: Meloxicam [Mobic 15 mg tab] 15 mg PO DAILY #10 tab Transmission Status: Pending to [facility] Referrals: Charlotte Recinos PA [Primary Care Provider] - - Critical Care Critical Care Time: No Attestation: On 07/24/21, the high probability of a clinically significant, sudden or life threatening deterioration of the following system(s) required my full and direct attention, intervention and personal management. The time I documented below is in addition to time spent performing reported procedures but includes the following listed in this critical care notation. Medical Decision Making - Medical Records Medical records reviewed: Yes: I reviewed the patient's medical records. - Ramone Inquiry Pt receiving controlled substance: No Vital Signs: 07/24/21 23:05 Temperature 98.2 F Temperature Source Oral Pulse Rate [Apical] 100 H Respiratory Rate 20 Blood Pressure [Right Arm] 122/94 H Blood Pressure Mean [Right Arm] 103 Blood Pressure Source [Right Arm] Automatic Cuff Blood Pressure Position [Right Arm] Sitting 02 Sat by Pulse Oximetry 98 Oxygen Delivery Method Room Air - Lab Data Lab results reviewed: Yes: I reviewed the patient's lab results. Lab Results 07/24/21 23:22: WBC 10.3, RBC 5.32, Hgb 16.8, Hct 50.5, MCV 94.9 H, MCH 31.6 H, MCHC 33.3, RDW 13.4, Plt Count 335, MPV 7.7, Neut % (Auto) 54.0, Lymph % (Auto) 35.3, [place] % (Auto) 7.2, Eos % (Auto) 0.7, Baso % (Auto) 2.8 H, Neut # (Auto) 5.6, Lymph # (Auto) 3.6, [place] # (Auto) 0.8, Eos # (Auto) 0.1, Baso # (Auto) 0.3 H 07/24/21 23:22: Sodium 139, Potassium 3.2 L, Chloride 98, Carbon Dioxide 31 H, Anion Gap 13.2, BUN 11, Creatinine 0.80, Estimated Creat Clear 119, Estimated GFR 114, Est GFR ( Amer) 137, Glucose 63 L, Calcium 9.0, Total Bilirubin 0.8, AST 29, ALT 29, Alkaline Phosphatase 65, Total Protein 7.8, Albumin 4.8, Globulin 3.0, Albumin/Globulin Ratio 1.6 07/24/21 23:22: Urine Color Yellow, Urine Appearance Clear, Urine pH 6.5, Ur Specific [place] 1.015, Urine Protein Negative, Urine Glucose (UA) Negative, Urine Ketones Negative, Urine Blood Trace-i, Urine Nitrate Negative, Urine Bilirubin Negative, Urine Urobilinogen 1.0, Ur Leukocyte Esterase Negative, Urine RBC 5-10, Urine WBC 5-10, Ur Squamous Epith Cells Occasional, Urine Bacteria Trace Result diagrams: 07/24/21 23:22 07/24/21 23:22 Orders (Tests/Meds): ED MEDICATIONS Generic Name Dose Route Start Last Admin Trade Name Freq PRN Reason Stop Dose Admin Sodium Chloride 1,000 mls @ 999 mls/hr 07/24/21 23:30 07/25/21 00:12 Sod Chlor 0.9% 1000ml Bag IV 07/25/21 00:30 999 mls/hr .Q1H1M OTIS Administration Discontinued Medications Generic Name Dose Route Start Last Admin Trade Name Freq PRN Reason Stop Dose Admin Ketorolac Tromethamine 30 mg 07/24/21 23:23 07/25/21 00:11 Ketorolac 30mg/Ml Vial IV 07/24/21 23:24 30 mg ONCE ONE Administration Methylprednisolone Sodium Succinate 125 mg 07/24/21 23:26 07/25/21 00:12 Methylprednisolone Sod Succ 125mg Vial IV 07/24/21 23:27 125 mg ONCE ONE Administration ORDERS Category Date Time Status Urine Culture Stat Micro 07/25/21 00:17 Ordered - CT Data CT Scan: T-Spine, L-Spine Time Received: 00:[address] Reviewed: Yes: I have viewed the radiologist's interpretation Preliminary Findings: Normal/NAD, No Fracture Seen Back Pain HPI - General Chief Complaint: Back Pain/Injury Stated Complaint: AO 07/24/21 lower back pain Time Seen by Provider: 07/25/21 00:00 Mode of Arrival: Ambulatory Source of Information: Patient, Medical Record Limitations: No Limitations Description of Symptoms (Recalled from ER Triage Doc. by RN): pt states that 3 hours ago he
[2021-07-25 00:41] VITALS: BP 122/94; PULSE 78; RESP 16; TEMP 36.8; O2SAT 98
== END 2021-07-25 00:45 | disposition home or self-care (01) ==
PROVIDERS: Emergency Provider Emergency Medicine; PCP Physician Assistant
DX: M54.50 Low back pain, unspecified (principal); R00.2 Palpitations; I10 Essential (primary) hypertension; I48.91 Unspecified atrial fibrillation; F41.9 Anxiety disorder, unspecified; F17.210 Nicotine dependence, cigarettes, uncomplicated; Z79.51 Long term (current) use of inhaled steroids; Z79.52 Long term (current) use of systemic steroids; Z79.899 Other long term (current) drug therapy; Z82.49 Family history of ischemic heart disease and other diseases of the circulatory system; Z82.5 Family history of asthma and other chronic lower respiratory diseases; Z80.9 Family history of malignant neoplasm, unspecified; Z84.89 Family history of other specified conditions; W22.8XXA Striking against or struck by other objects, initial encounter
CPT/HCPCS: 72128; 72131; 80053; 81001; 85025; 87086; 96365; 96374; 99285

== ENCOUNTER 2021-09-07 18:22 | Emergency (ER) | payer BC, SELFPAY ==
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
--- NOTE | 2021-09-07 18:31 | XR_ITS ---
PROCEDURE INFORMATION: Exam: XR Left Ankle Exam date and time: 09/07/2021 6:29 PM Age: 30 years old Clinical indication: Pain; Ankle; Left; Patient HX: Stepped in a hole; Additional info: Fall TECHNIQUE: Imaging protocol: XR Left ankle. Views: 3 or more views. COMPARISON: No relevant prior studies available. FINDINGS: Bones/joints: Normal. Soft tissues: Normal. IMPRESSION: No acute findings.
[2021-09-07 19:10] VITALS: BP 132/75; PULSE 85; RESP 17; TEMP 37; O2SAT 97; BMI 24.8
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
[2021-09-07 20:02] VITALS: BP 132/75; PULSE 85; RESP 17; TEMP 37; O2SAT 97
== END 2021-09-07 20:03 | disposition home or self-care (01) ==
PROVIDERS: Emergency Provider Nurse Practitioner Family; PCP Physician Assistant
DX: S96.912A Strain of unspecified muscle and tendon at ankle and foot level, left foot, initial encounter (principal); R07.9 Chest pain, unspecified; R00.2 Palpitations; R42 Dizziness and giddiness; R94.31 Abnormal electrocardiogram [ECG] [EKG]; R00.0 Tachycardia, unspecified; I10 Essential (primary) hypertension; F17.210 Nicotine dependence, cigarettes, uncomplicated; Z79.51 Long term (current) use of inhaled steroids; Z79.52 Long term (current) use of systemic steroids; Z79.899 Other long term (current) drug therapy; Z82.49 Family history of ischemic heart disease and other diseases of the circulatory system; Z82.5 Family history of asthma and other chronic lower respiratory diseases; Z83.438 Family history of other disorder of lipoprotein metabolism and other lipidemia; Z83.49 Family history of other endocrine, nutritional and metabolic diseases; W17.2XXA Fall into hole, initial encounter
CPT/HCPCS: 73610; 73630; 99213; G0463

== ENCOUNTER 2021-09-09 16:16 | Outpatient (RCR) | payer BC, SELFPAY | END 2021-09-09 17:00 | disposition home or self-care (01) | LOC: PT 16:16 | PROVIDERS: Visit Provider Physician Assistant | DX: S92.912A Unspecified fracture of left toe(s), initial encounter for closed fracture (principal) | CPT/HCPCS: 97760 ==

== ENCOUNTER 2022-02-01 05:08 | Emergency (ER) | payer BC, SELFPAY ==
[2022-02-01 05:10] VITALS: BP 123/74; PULSE 72; RESP 17; TEMP 36.7; O2SAT 99; BMI 21.1
[2022-02-01 05:26] VITALS: BMI 21.1
--- NOTE | 2022-02-01 05:28 | CT_ITS ---
PROCEDURE INFORMATION: Exam: CT Abdomen And Pelvis With Contrast Exam date and time: 02/01/2022 6:56 AM Age: 31 years old Clinical indication: Abdominal pain; Periumbilical; Additional info: Bilat upper abd and janet-umbilical pain, tender TECHNIQUE: Imaging protocol: Computed tomography of the abdomen and pelvis with contrast. Radiation optimization: All CT scans at this facility use at least one of these dose optimization techniques: automated exposure control; mA and/or kV adjustment per patient size (includes targeted exams where dose is matched to clinical indication); or iterative reconstruction. Contrast material: ISOVUE; Contrast volume: 75 ml; Contrast route: IV; COMPARISON: ABDPELW CT ABD PELVIS W/ CONTRAST 01/05/2017 9:47 AM FINDINGS: Liver: Mild fatty liver. Gallbladder and bile ducts: Normal. No calcified stones. No ductal dilation. Pancreas: Normal. No ductal dilation. Spleen: Multiple calcified splenic granulomas. Adrenal glands: Normal. No mass. Kidneys and ureters: Normal. No hydronephrosis. Stomach and bowel: Unremarkable. No obstruction. No mucosal thickening. Appendix: No evidence of appendicitis. Intraperitoneal space: Unremarkable. No free air. No significant fluid collection. Vasculature: Unremarkable. No abdominal aortic aneurysm. Lymph nodes: Unremarkable. No enlarged lymph nodes. Urinary bladder: Unremarkable as visualized. Reproductive: Unremarkable as visualized. Bones/joints: Minor lower thoracic spondylosis. Soft tissues: Unremarkable. IMPRESSION: 1. No acute abdominal or pelvic visceral pathology. 2. Mild fatty liver. 3. Other nonacute findings above.
--- NOTE | 2022-02-01 05:33 | PC.NURSE ---
RADIOLOGY MADE AWARE OF ORAL CONTRAST BEING GIVEN. PT MADE AWARE OF EXPECTED WAIT TIMES.
[2022-02-01 05:36] LABS: Basophils # 0.2 K/mm3 (0-0.2); Basophils % 1.5 % (0.1-2.0); Eosinophils # 0.2 K/mm3 (0.0-0.4); Eosinophils % 1.2 % (0.1-12.0); Hematocrit 50.2 % (42.0-52.0); Hemoglobin 15.9 g/dL (14.1-18.0); Lymphocytes # 5.4 K/mm3 (0.7-4.5); Lymphocytes % 38.6 % (10-50); Mean Corpuscular HGB Conc 31.7 g/dL (31.8-35.4); Mean Corpuscular Hemoglobin 31.3 pg (27.0-31.2); Mean Corpuscular Volume 98.8 fl (80-94); Mean Platelet Volume 7.8 fl (7.4-10.4); Monocytes # 0.9 K/mm3 (0.1-1.0); Monocytes % 6.8 % (1.7-9.3); Neutrophils # 7.2 K/mm3 (1.8-7.8); Neutrophils % 51.8 % (37.0-80.0); Platelet Count 306 K/mm3 (142-424); Red Blood Count 5.08 M/mm3 (4.60-6.20); Red Cell Distribution Width 13.3 % (11.5-17.5); White Blood Count 13.9 K/mm3 (4.8-10.8)
--- NOTE | 2022-02-01 05:36 | PC.NURSE ---
WARMED BLANKET PROVIDED FOR COMFORT.
[2022-02-01 05:38] LABS: Microscopic, Urine URINE MICROSCOPIC (MICROSCOPIC)
[2022-02-01 05:39] LABS: Amylase 87 U/L (30-110)
[2022-02-01 05:40] LABS: Alanine Aminotransferase 18 U/L (12-78); Albumin Level 4.4 g/dl (3.5-5.0); Albumin/Globulin Ratio 1.6 (1.1-1.8); Alkaline Phosphatase 73 U/L (38-126); Anion Gap 9.9 mEq/L (5-15); Aspartate Amino Transferase 34 U/L (17-59); Bilirubin,Total 0.6 mg/dl (0.2-1.3); Blood Urea Nitrogen 12 mg/dl (9-20); Carbon Dioxide 29 mmol/L (22.0-30.0); Chloride 108 mmol/L (98-107); Creatinine Clearance Estimated 125 mL/min (50-200); Estimated Glomerular Filt Rate 132 ml/min (>60); GFR (African American) 159 ML/MIN (>60); Globulin 2.8 g/dL (1.3-3.2); Glucose 93 mg/dl (74-100); Lipase 100 U/L (23-300); Potassium 3.9 mmoL/L (3.5-5.1); Sodium 143 mmol/L (136-145); Total Protein,Serum 7.2 g/dl (6.3-8.2)
[2022-02-01 05:44] LABS: Appearance,Urine CLEAR (Clear); Bilirubin,Urine Negative (Negative); Blood, Urine 1+ (Negative); Color,Urine YELLOW (Yellow); Glucose,Urine (UA) Negative (Negative); Ketones,Urine Negative (Negative); Leukocyte Esterase,Urine Negative (Negative); Nitrate,Urine Negative (Negative); Protein,Urine Negative (Negative); Urobilinogen,Urine 0.2 EU/dl (0.2)
[2022-02-01 05:45] LABS: C-Reactive Protein 2.1 mg/L (0-4)
[2022-02-01 05:47] LABS: Squamous Epithelial Cell,Urine Occasional #/hpf (0-5)
[2022-02-01 05:59] LABS: Procalcitonin 0.032 ng/mL (0.0-2.0)
--- NOTE | 2022-02-01 06:11 | HMH.EDABDPAI ---
Discharge Plan Disposition Patient Disposition: Home, Self-Care Prescriptions Prescriptions: New pantoprazole [Protonix] 40 mg tablet,delayed release (DR/EC) 40 mg PO DAILY Qty: 30 0RF No Action montelukast 10 mg tablet 10 mg PO DAILY cetirizine 10 mg tablet 10 mg PO DAILY albuterol sulfate [ProAir HFA] 90 mcg/actuation HFA aerosol inhaler 2 puff INHALATION Q4-6H PRN (Reason: shortness of breath or wheezing) Qty: 8.5 0RF fluticasone propionate 50 mcg/actuation spray,suspension 2 spray INTRANASAL ONCE Qty: 16 3RF Anoro Ellipta 62.5-25 mcg/actuation blister with device 1 inh INHALATION DAILY Qty: 60 3RF triamcinolone acetonide 0.5 % cream 1 applic TOPICAL TID Qty: 15 0RF cyclobenzaprine 5 mg tablet 5 mg PO TID PRN (Reason: muscle spasm) Qty: 90 0RF buspirone 15 mg tablet See Rx Instructions .ROUTE .COMPLEX Qty: 90 3RF Dose Instruction: TAKE 1/2 TABLET BY MOUTH 2 TIMES A DAY Rx Instructions: TAKE 1/2 TABLET BY MOUTH 2 TIMES A DAY metoprolol succinate 50 mg tablet extended release 24 hr See Rx Instructions .ROUTE .COMPLEX Qty: 60 5RF Dose Instruction: TAKE ONE TABLET BY MOUTH 2 TIMES A DAY Rx Instructions: TAKE ONE TABLET BY MOUTH 2 TIMES A DAY meloxicam 15 MG tablet 15 mg PO DAILY Qty: 10 0RF Referrals Follow up/Referrals: Charlotte Recinos PA [Primary Care Provider] - See instructions Clinical Impressions Clinical Impression: Abdominal pain, Gastritis Instructions Patient Instructions: DI for Gastritis Discharge ED Provider: Bear Corea Abdominal Pain HPI General Chief Complaint: Abdominal Pain Stated Complaint: Stomach pain with nausea Time Seen by Provider: 02/01/22 06:12 Mode of Arrival: Family Vehicle Source of Information: Patient and Medical Record Limitations: No Limitations Description of Symptoms (Recalled from ER Triage Doc. by RN): Pt c/o bilat upper abd and janet-umbilical pain for several days. States it was intermittent but this morning it woke him from his sleep and has been constrant and sharp. Tender on palpation. Denies any n/v/d. Reports last BM was 2-3 days ago. He reports a hx of colitis. Denies any previous abd surgery. Denies fever, chills, or cough. History of Present Illness HPI narrative: upper abd pain over the last few days - no vomiting and no melena -has gerd and no recent egd MD complaint: abdominal pain Onset (ago): day(s) Consistency: intermittent Location: epigastric Severity: moderate Quality: sharp Associated symptoms: denies other symptoms Related Data Home Medications Medication Instructions Recorded Confirmed cetirizine 10 mg tablet 10 mg PO DAILY 09/09/21 10/15/21 montelukast 10 mg tablet 10 mg PO DAILY 09/09/21 10/15/21 Previous Rx's Medication Instructions Recorded buspirone 15 mg tablet See Rx Instructions .Route 06/09/21 .COMPLEX #90 tabs meloxicam 15 mg tablet 15 mg PO DAILY #10 tabs 07/25/21 albuterol sulfate 90 mcg/actuation 2 puff inhalation Q4-6H PRN 09/09/21 aerosol inhaler (ProAir HFA) shortness of breath or wheezing #8.5 grams fluticasone propionate 50 2 spray intranasal ONCE #16 grams 09/09/21 mcg/actuation nasal spray,suspension triamcinolone acetonide 0.5 % 1 applic topical TID #15 grams 09/09/21 topical cream umeclidinium 62.5 mcg-vilanterol 1 inh inhalation DAILY #60 ea 09/09/21 25 mcg/actuation powdr for inhalation (Anoro Ellipta) cyclobenzaprine 5 mg tablet 5 mg PO TID PRN muscle spasm #90 10/15/21 tabs metoprolol succinate 50 mg See Rx Instructions .Route 11/12/21 tablet,extended release 24 hr .COMPLEX #60 tabs pantoprazole 40 mg tablet,delayed 40 mg PO DAILY #30 tabs 02/01/22 release (Protonix) Allergies Allergy/AdvReac Type Severity Reaction Status Date / Time No Known Allergies Allergy Verified 10/15/21 13:50 [facility] Medical History (Updated 02/01/22 @ 08:21 by Bear Corea MD) Abnormal EK
[2022-02-01 06:26] LABS: Erythrocyte Sedimentation Rate 3 mm/hr (0-15)
[2022-02-01 06:30] VITALS: BP 136/88; PULSE 72; RESP 18; O2SAT 100
--- NOTE | 2022-02-01 07:00 | PC.NURSE ---
pt to CT
[2022-02-01 07:30] VITALS: BP 126/84; PULSE 70; O2SAT 99
[2022-02-01 08:00] VITALS: BP 126/80; PULSE 63; O2SAT 99
[2022-02-01 08:20] VITALS: BP 126/80; PULSE 63; RESP 18; TEMP 36.7; O2SAT 99
== END 2022-02-01 08:28 | disposition home or self-care (01) ==
PROVIDERS: Emergency Provider Emergency Medicine; PCP Physician Assistant
DX: K29.70 Gastritis, unspecified, without bleeding (principal)
CPT/HCPCS: 74177; 80053; 81001; 82150; 83690; 84145; 85025; 85651; 86140; 96361; 96374; 96375; 99284; Q9967

== ENCOUNTER → 2022-02-04 12:56 | Outpatient (CLI) | payer BC, SELFPAY ==
[2022-02-05 16:13] LABS: H. pylori Breath Test Positive (Negative)
== END ==
PROVIDERS: PCP Physician Assistant; Visit Provider Nurse Practitioner Family
DX: R10.10 Upper abdominal pain, unspecified (principal); B96.81 Helicobacter pylori [H. pylori] as the cause of diseases classified elsewhere
CPT/HCPCS: 83013

== ENCOUNTER 2022-07-19 15:09 | Emergency (ER) | payer BC, SELFPAY ==
[2022-07-19 15:50] VITALS: BP 173/89; PULSE 107; RESP 20; TEMP 38.9; O2SAT 98; BMI 23.0
[2022-07-19 16:02] LABS: UTC Influenza A Antigen Negative (Negative); UTC Influenza B Antigen Negative (Negative)
--- NOTE | 2022-07-19 16:19 | EXP.UTC ---
Discharge Plan Disposition Patient Disposition: Home, Self-Care Condition: Good Prescriptions Prescriptions: No Action montelukast 10 mg tablet 10 mg PO DAILY albuterol sulfate [ProAir HFA] 90 mcg/actuation HFA aerosol inhaler 2 puff INHALATION Q4-6H PRN (Reason: shortness of breath or wheezing) Qty: 8.5 0RF Anoro Ellipta 62.5-25 mcg/actuation blister with device 1 inh INHALATION DAILY Qty: 60 3RF triamcinolone acetonide 0.5 % cream 1 applic TOPICAL TID Qty: 15 0RF cyclobenzaprine 5 mg tablet 5 mg PO TID PRN (Reason: muscle spasm) Qty: 90 0RF pantoprazole [Protonix] 40 mg tablet,delayed release (DR/EC) 40 mg PO DAILY Qty: 30 0RF prednisone 20 mg tablet 20 mg PO BID Qty: 10 0RF Rx Instructions: administer with food or milk pseudoephedrine HCl [Sudafed 12 Hour] 120 mg tablet extended release 120 mg PO Q12H Qty: 20 0RF amoxicillin 875 mg tablet 875 mg PO BID Qty: 20 0RF cetirizine 10 mg tablet 10 mg PO DAILY Qty: 30 5RF fluticasone propionate 50 mcg/actuation spray,suspension 2 spray INTRANASAL ONCE Qty: 16 3RF metoprolol succinate 50 mg tablet extended release 24 hr See Rx Instructions .ROUTE .COMPLEX Qty: 60 5RF Dose Instruction: TAKE ONE TABLET BY MOUTH 2 TIMES A DAY Rx Instructions: TAKE ONE TABLET BY MOUTH 2 TIMES A DAY pantoprazole [Protonix] 40 mg tablet,delayed release (DR/EC) 40 mg PO DAILY Qty: 90 3RF Rx Instructions: take one tablet PO daily for 14 days then continue to take one tablet daily for 6 months. famotidine [Pepcid] 20 mg tablet 20 mg PO DAILY Qty: 90 1RF buspirone 15 mg tablet See Rx Instructions .ROUTE .COMPLEX Qty: 30 0RF Dose Instruction: TAKE 1/2 TABLET BY MOUTH 2 TIMES A DAY Rx Instructions: TAKE 1/2 TABLET BY MOUTH 2 TIMES A DAY Referrals Follow up/Referrals: Charlotte Recinos PA [Primary Care Provider] - See instructions Activity Restrictions/Add. Instructions Additional Instructions/Restrictions: *Monitor Temp, Over the counter Motrin or Tylenol as directed/as needed Tylenol every 4 hours and Motrin every 6 hours (as long as your family doctor has told you that you can take it) for fever or pain. and straight to ER if unable to lower temp less than 101.0 after medication given *Warm salt water gargles may help to soothe the throat *Throat Lozenges? *Warm fluids like tea with honey may help to soothe the throat? *Sleep elevated *Humidifier/Vaporizer Follow up IMMEDIATELY for new or worsening symptoms or no Noticeable improvement over the next 48-72 hours. 911 for difficulty breathing or swallowing You were tested for today for Upper Respiratory Panel with COVID19 your test result should be back in the next 24-48 hours, you may check your results on the [facility] [employer] Health Portal Clinical Impressions Clinical Impression: Viral syndrome Stand Alone Forms Stand Alone Forms: Work/School Release Instructions Patient Instructions: DI for Viral Syndrome, DI for Fever (Symptom) -- Adult Discharge ED Provider: Caro Montez [facility] [place] HPI General Stated complaint: body aches, diarrhea Mode of Arrival: Ambulatory Source of Information: Patient Time Seen by Provider: 07/19/22 16:19 Description of Symptoms (Recalled from Triage Doc. by RN): body ache, CARRERO, and diarrhea HEENT Symptoms (Recalled from RN notes): Yes Resp Symptoms (Recalled from RN notes): No Skin Symptoms (Recalled from RN notes): No MS Symptoms (Recalled from RN notes): No Functional Status (Recalled from RN notes): n/a History of Present Illness Provider Complaint: Patient states that yesterday he started with body aches, chills, headache and diarrhea states that he took Tylenol and his fever came down and headache went away States that today he is still having bodyaches, chills and fever along with diarrhea states that he feels like he may have the flu or something States that he is
[2022-07-19 16:40] VITALS: BP 173/89; PULSE 107; RESP 20; TEMP 37.3; O2SAT 98
== END 2022-07-19 16:40 | disposition home or self-care (01) ==
PROVIDERS: Emergency Provider Nurse Practitioner; PCP Physician Assistant
DX: R52 Pain, unspecified (principal); R19.7 Diarrhea, unspecified; B34.9 Viral infection, unspecified
CPT/HCPCS: 87804; 99212; 99213; C9803; G0463; U0003; U0005

== ENCOUNTER 2023-04-09 19:13 | Emergency (ER) | payer OTHER, BC, SELFPAY ==
[2023-04-09 19:25] VITALS: BP 118/76; PULSE 87; RESP 19; TEMP 36.8; O2SAT 100; BMI 22.3
--- NOTE | 2023-04-09 19:43 | EXP.UTC ---
Discharge Plan Disposition Patient Disposition: Home, Self-Care Condition: Good Prescriptions Prescriptions: No Action triamcinolone acetonide 0.5 % cream 1 applic TOPICAL TID Qty: 15 0RF cetirizine 10 mg tablet See Rx Instructions .ROUTE .COMPLEX Qty: 90 3RF Dose Instruction: TAKE 1 TABLET BY MOUTH ONCE A DAY Rx Instructions: TAKE 1 TABLET BY MOUTH ONCE A DAY famotidine 20 mg tablet 20 mg PO DAILY Qty: 90 0RF montelukast 10 mg tablet 10 mg PO DAILY Qty: 90 3RF pantoprazole [Protonix] 40 mg tablet,delayed release (DR/EC) 40 mg PO DAILY Qty: 90 3RF Rx Instructions: take one tablet PO daily for 14 days then continue to take one tablet daily for 6 months. Anoro Ellipta 62.5-25 mcg/actuation blister with device 1 inh INHALATION DAILY Qty: 60 3RF buspirone 15 mg tablet 15 mg PO BID Qty: 60 2RF metoprolol succinate 50 mg tablet extended release 24 hr See Rx Instructions .ROUTE .COMPLEX Qty: 60 5RF Dose Instruction: TAKE ONE TABLET BY MOUTH 2 TIMES A DAY Rx Instructions: TAKE ONE TABLET BY MOUTH 2 TIMES A DAY fluticasone propionate 50 mcg/actuation spray,suspension See Rx Instructions .ROUTE .COMPLEX Qty: 16 2RF Dose Instruction: USE 2 SPRAYS IN EACH NOSTRIL ONCE A DAY Rx Instructions: USE 2 SPRAYS IN EACH NOSTRIL ONCE A DAY albuterol sulfate 90 mcg/actuation HFA aerosol inhaler See Rx Instructions .ROUTE .COMPLEX Qty: 8.5 12RF Dose Instruction: INHALE 2 PUFFS BY MOUTH EVERY 4 TO 6 HOURS NEEDED FOR SHORTNESS OF BREATH OR WHEEZING Rx Instructions: INHALE 2 PUFFS BY MOUTH EVERY 4 TO 6 HOURS NEEDED FOR SHORTNESS OF BREATH OR WHEEZING Referrals Follow up/Referrals: Charlotte Recinos PA [Primary Care Provider] - See instructions Activity Restrictions/Add. Instructions Additional Instructions/Restrictions: *Monitor Temp, Over the counter Motrin or Tylenol as directed/as needed Tylenol every 4 hours and Motrin every 6 hours (as long as your family doctor has told you that you can take it) for fever or pain. and straight to ER if unable to lower temp less than 101.0 after medication given *Warm salt water gargles may help to soothe the throat *Throat Lozenges? *Warm fluids like tea with honey may help to soothe the throat? *Sleep elevated *Humidifier/Vaporizer Follow up IMMEDIATELY for new or worsening symptoms or no Noticeable improvement over the next 48-72 hours. 911 for difficulty breathing or swallowing You were tested for today for Upper Respiratory Panel with COVID19 your test result should be back in the next 24hrs You can check your results on the [facility] My Health Portal if your COVID test is positive you must Quarantine for the next 5 days Clinical Impressions Clinical Impression: Exposure to COVID-19 virus Instructions Patient Instructions: DI for COVID-19 (Suspected or Confirmed ) Discharge ED Provider: Caro Montez [facility] [place] HPI General Stated complaint: exposed to covid-test Mode of Arrival: Ambulatory Source of Information: Patient Limitations: No Limitations Time Seen by Provider: 04/09/23 19:43 Description of Symptoms (Recalled from Triage Doc. by RN): COVID TEST D/T EXPOSURE. DENIES SYMPTOMS HEENT Symptoms (Recalled from RN notes): No Resp Symptoms (Recalled from RN notes): No Skin Symptoms (Recalled from RN notes): No MS Symptoms (Recalled from RN notes): No Functional Status (Recalled from RN notes): WNL History of Present Illness Provider Complaint: Patient states that he wants to get tested for COVID Denies having any symptoms but he has been around several family members that is COVID positive Related Data Previous Rx's Medication Instructions Recorded triamcinolone acetonide 0.5 % 1 applic topical TID #15 grams 09/09/21 topical cream metoprolol succinate 50 mg See Rx Instructions .Route 12/07/22 tablet,extended release 24 hr .COM
[2023-04-09 19:44] VITALS: BP 118/76; PULSE 87; RESP 19; TEMP 36.8; O2SAT 100
== END 2023-04-09 19:55 | disposition home or self-care (01) ==
PROVIDERS: Emergency Provider Nurse Practitioner; PCP Physician Assistant
DX: Z20.822 Contact with and (suspected) exposure to COVID-19 (principal); F17.210 Nicotine dependence, cigarettes, uncomplicated
CPT/HCPCS: 87635; 99212; G0463

== ENCOUNTER 2023-05-25 15:15 | Emergency (ER) | payer OTHER, BC, SELFPAY ==
[2023-05-25 16:35] VITALS: BP 124/84; PULSE 87; RESP 18; TEMP 36.9; O2SAT 97; BMI 20.6
[2023-05-25 17:01] LABS: UTC Strep Screen (Rapid) Negative (Negative)
--- NOTE | 2023-05-25 17:07 | EXP.UTC ---
Discharge Plan Disposition Patient Disposition: Home, Self-Care Condition: Good Prescriptions Prescriptions: No Action cetirizine 10 mg tablet 10 mg PO DAILY famotidine 20 mg tablet 20 mg PO DAILY pantoprazole 40 mg tablet,delayed release (DR/EC) 40 mg PO DAILY montelukast 10 mg tablet 10 mg PO DAILY albuterol sulfate 90 mcg/actuation HFA aerosol inhaler 2 puff INHALATION Q6HP PRN (Reason: Asthma) fluticasone propionate 50 mcg/actuation spray,suspension 2 spray INTRANASAL DAILY buspirone 15 mg tablet 15 mg PO DAILY Referrals Follow up/Referrals: Charlotte Recinos PA [Primary Care Provider] - See instructions Activity Restrictions/Add. Instructions Additional Instructions/Restrictions: *Monitor Temp, Over the counter Motrin or Tylenol as directed/as needed Tylenol every 4 hours and Motrin every 6 hours (as long as your family doctor has told you that you can take it) for fever or pain. and straight to ER if unable to lower temp less than 101.0 after medication given *Warm salt water gargles may help to soothe the throat *Throat Lozenges? *Warm fluids like tea with honey may help to soothe the throat? *Sleep elevated *Humidifier/Vaporizer *Your throat swab was sent for culture. Those results are typically sent to your primary care. Be sure to follow up in 2-3 days with your family doctor/primary care physician if no improvement so they can review those result and treat if necessary. If you don?t have a primary care doctor, I recommend you get one but in the mean time, you will have to return to a walk in clinic Follow up IMMEDIATELY for new or worsening symptoms or no Noticeable improvement over the next 48-72 hours. 911 for difficulty breathing or swallowing Clinical Impressions Clinical Impression: Sore throat (viral) Instructions Patient Instructions: Sore Throat, DI for Nasal Congestion Discharge ED Provider: Caro Montez [facility] [place] HPI General Stated complaint: sore throat, congestion, cough, runny nose Mode of Arrival: Ambulatory Source of Information: Patient Limitations: No Limitations Time Seen by Provider: 05/25/23 17:07 Description of Symptoms (Recalled from Triage Doc. by RN): PATIENT C/O CONGESTION, COUGH, RUNNY NOSE AND SORE THROAT X 3 DAYS HEENT Symptoms (Recalled from RN notes): Yes Resp Symptoms (Recalled from RN notes): Yes Skin Symptoms (Recalled from RN notes): No MS Symptoms (Recalled from RN notes): No Functional Status (Recalled from RN notes): WNL History of Present Illness Provider Complaint: Patient states that he has been having sinus pain and pressure, cough, runny nose and sore throat for 3 days States that today it was worse so he came in to get checked Related Data Home Medications Medication Instructions Recorded Confirmed albuterol sulfate 90 mcg/actuation 2 puff inhalation Q6HP PRN Asthma 05/25/23 05/25/23 aerosol inhaler buspirone 15 mg tablet 15 mg PO DAILY 05/25/23 05/25/23 cetirizine 10 mg tablet 10 mg PO DAILY 05/25/23 05/25/23 famotidine 20 mg tablet 20 mg PO DAILY 05/25/23 05/25/23 fluticasone propionate 50 2 spray intranasal DAILY 05/25/23 05/25/23 mcg/actuation nasal spray,suspension montelukast 10 mg tablet 10 mg PO DAILY 05/25/23 05/25/23 pantoprazole 40 mg tablet,delayed 40 mg PO DAILY 05/25/23 05/25/23 release Allergies Allergy/AdvReac Type Severity Reaction Status Date / Time No Known Allergies Allergy Verified 12/29/22 16:48 Worker's Comp Is this a Worker's Comp case?: No [facility] Disclaimer: The information contained in this section may have been updated after the patient was seen, as this information can be updated by other users. Medical History Abnormal EKG Bilateral serous otitis media Chest pain Dizziness Tachycardia Social History Smoking Status: Current every day smoker tobacco type: cigarettes packs per day: 1 second hand exposure: No alcohol intake: current substance use type: denies use current occupational status: employed Travel in the last 8 weeks: Inside the [place] household members: none housing: house current occupational exposures/hazards: No caffeine: Yes ROS Obtained: Yes All systems reviewed & no additional complaints except as documented and Yes Systems reviewed as appropriate & no additional complaints except as documented Constitutional Constitutional: Reports system reviewed and no additional complaints, except as documented, Reports as per HPI and Reports headache(s) ENT Ears, Nose, Mouth, and Throat: Reports system reviewed and no additional complaints, except as documented, Reports as per HPI, Reports headache(s), Reports nasal congestion, Reports nasal discharge and Reports sore throat Cardiovascular Cardiovascular: Reports system reviewed and no additional complaints, except as documented and Reports as per HPI Respiratory Respiratory: Reports system reviewed and no additional complaints, except as documented and Reports as per HPI Gastrointestinal Gastrointestingal: Reports system reviewed and no additional complaints, except as documented and as per HPI Musculoskeletal Musculoskeletal: Reports system reviewed and no additional complaints, except as documented and Reports as per HPI Neurologic Neurologic: Reports headache(s) Physical Exam General General appearance: alert and in no apparent distress ENT ENT exam: Present mucous membranes moist Expanded ENT Exam Nose exam: Present sinus tenderness Throat exam: Present tonsillar erythema Respiratory Respiratory exam: Present normal lung sounds bilaterally; Absent respiratory distress or wheezes Cardiovascular Cardiovascular exam: Present regular rate, normal rhythm and normal heart sounds Neurological Exam Neurological exam: Present alert, oriented X3 and normal gait Medical Decision Making Ramone Inquiry Pt receiving controlled substance: No Ramone was queried for this patient: No Vital Signs: 05/25/23 16:35 Temperature 98.5 F Temperature Source Oral Pulse Rate [Left Brachial] 87 Respiratory Rate 18 Blood Pressure [Left Arm] 124/84 Blood Pressure Mean [Left Arm] 97 Blood Pressure Source [Left Arm] Automatic Cuff Blood Pressure Position [Left Arm] Sitting 02 Sat by Pulse Oximetry 97 Oxygen Delivery Method Room Air Lab Data Lab results reviewed: Yes I reviewed the patient's lab results. Lab Results 05/25/23 16:43: Strep Scn Rapid Clinic Negative Orders (Tests/Meds): ORDERS Category Date Time Status Strep Screen Confirmation Stat Micro 05/25/23 16:43 Received
[2023-05-25 17:40] VITALS: BP 124/84; PULSE 87; RESP 18; TEMP 36.9; O2SAT 97
== END 2023-05-25 17:47 | disposition home or self-care (01) ==
PROVIDERS: Emergency Provider Nurse Practitioner; PCP Physician Assistant
DX: R07.0 Pain in throat (principal); R09.81 Nasal congestion; R05.9 Cough, unspecified; R51.9 Headache, unspecified; B34.9 Viral infection, unspecified; F17.210 Nicotine dependence, cigarettes, uncomplicated
CPT/HCPCS: 87880; 99212; 99213; G0463

== ENCOUNTER 2023-07-23 18:34 | Outpatient (CLI) | payer OTHER, SELFPAY ==
[2023-07-23 18:33] LABS: Basophils # 0.1 K/mm3 (0-0.2); Basophils % 0.6 % (0.1-2.0); Eosinophils # 0.1 K/mm3 (0.0-0.4); Eosinophils % 0.5 % (0.1-12.0); Hematocrit 48.7 % (42.0-52.0); Hemoglobin 16.3 g/dL (14.1-18.0); Lymphocytes # 2.8 K/mm3 (0.7-4.5); Lymphocytes % 25.8 % (10-50); Mean Corpuscular HGB Conc 33.6 g/dL (31.8-35.4); Mean Corpuscular Hemoglobin 34.1 pg (27.0-31.2); Mean Corpuscular Volume 101.6 fl (80-94); Mean Platelet Volume 9.6 fl (7.4-10.4); Monocytes # 0.7 K/mm3 (0.1-1.0); Monocytes % 6.2 % (1.7-9.3); Neutrophils # 7.2 K/mm3 (1.8-7.8); Neutrophils % 66.9 % (37.0-80.0); Platelet Count 293 K/mm3 (142-424); Red Blood Count 4.79 M/mm3 (4.60-6.20); Red Cell Distribution Width 13.5 % (11.5-17.5); White Blood Count 10.7 K/mm3 (4.8-10.8)
[2023-07-23 18:52] LABS: Alanine Aminotransferase 21 U/L (12-78); Albumin Level 4.3 g/dl (3.5-5.0); Albumin/Globulin Ratio 1.7 (1.1-1.8); Alkaline Phosphatase 78 U/L (38-126); Anion Gap 13.1 mEq/L (5-15); Aspartate Amino Transferase 26 U/L (17-59); Bilirubin,Total 0.6 mg/dl (0.2-1.3); Blood Urea Nitrogen 16 mg/dl (9-20); Calcium 9.5 mg/dl (8.4-10.2); Carbon Dioxide 29 mmol/L (22.0-30.0); Chloride 104 mmol/L (98-107); Chol/HDL Ratio 3.6 (1-3.5); Cholesterol 180 mg/dl (140-200); Estimated Glomerular Filt Rate 112 ml/min (>60); GFR (African American) 136 ML/MIN (>60); Globulin 2.5 g/dL (1.3-3.2); Glucose 101 mg/dl (74-100); HDL Cholesterol 50 mg/dl (40-60); Potassium 4.1 mmoL/L (3.5-5.1); Sodium 142 mmol/L (136-145); Total Protein,Serum 6.8 g/dl (6.3-8.2); Triglycerides 83 mg/dl (30-150); VLDL Cholesterol 17 mg/dL (0-40)
[2023-07-23 19:03] LABS: Direct LDL Cholesterol 99.11 mg/dL (100-129)
[2023-07-23 19:04] LABS: Free T4 (Free Thyroxine) 1.14 ng/dl (0.78-2.19)
[2023-07-23 19:30] LABS: Thyroid Stimulating Hormone 0.85 uIU/mL (0.465-4.68)
[2023-07-23 19:46] LABS: 25-OH Vitamin D, Total 26.4 ng/mL (30-100)
[2023-07-23 19:57] LABS: Hemoglobin A1C 5.4 % (4.0-6.0)
== END 2023-07-23 23:59 ==
PROVIDERS: PCP Student in an Organized Health Care Education/Training Program; Visit Provider Student in an Organized Health Care Education/Training Program
DX: F41.1 Generalized anxiety disorder (principal); R73.09 Other abnormal glucose; Z13.21 Encounter for screening for nutritional disorder; Z13.220 Encounter for screening for lipoid disorders; Z13.29 Encounter for screening for other suspected endocrine disorder; E55.9 Vitamin D deficiency, unspecified; F17.200 Nicotine dependence, unspecified, uncomplicated; Z79.899 Other long term (current) drug therapy
CPT/HCPCS: 80053; 80061; 82306; 83036; 84439; 84443; 85025

== ENCOUNTER 2024-04-13 15:50 | Outpatient (CLI) | payer OTHER, SELFPAY ==
[2024-04-13 18:28] LABS: Basophils # 0.1 K/mm3 (0-0.2); Basophils % 0.5 % (0.1-2.0); Eosinophils % 0.4 % (0.1-12.0); Hematocrit 48.2 % (42.0-52.0); Hemoglobin 16.3 g/dL (14.1-18.0); Lymphocytes # 2.8 K/mm3 (0.7-4.5); Lymphocytes % 25.8 % (10-50); Mean Corpuscular HGB Conc 33.8 g/dL (31.8-35.4); Mean Corpuscular Hemoglobin 31.6 pg (27.0-31.2); Mean Corpuscular Volume 93.5 fl (80-94); Mean Platelet Volume 8.2 fl (7.4-10.4); Monocytes # 0.8 K/mm3 (0.1-1.0); Neutrophils # 7.2 K/mm3 (1.8-7.8); Neutrophils % 66.3 % (37.0-80.0); Platelet Count 296 K/mm3 (142-424); Red Blood Count 5.16 M/mm3 (4.60-6.20); Red Cell Distribution Width 13.2 % (11.5-17.5); White Blood Count 10.8 K/mm3 (4.8-10.8)
[2024-04-13 19:15] LABS: 25-OH Vitamin D, Total 46.2 ng/mL (30-100)
[2024-04-13 19:27] LABS: Alanine Aminotransferase 16 U/L (12-78); Albumin Level 4.3 g/dl (3.5-5.0); Albumin/Globulin Ratio 1.8 (1.1-1.8); Alkaline Phosphatase 64 U/L (38-126); Anion Gap 13.1 mEq/L (5-15); Aspartate Amino Transferase 20 U/L (17-59); Bilirubin,Total 0.9 mg/dl (0.2-1.3); Blood Urea Nitrogen 14 mg/dl (9-20); Calcium 9.4 mg/dl (8.4-10.2); Carbon Dioxide 27 mmol/L (22.0-30.0); Chloride 106 mmol/L (98-107); Chol/HDL Ratio 3.3 (1-3.5); Cholesterol 174 mg/dl (140-200); Estimated Glomerular Filt Rate 111 ml/min (>60); GFR (African American) 135 ML/MIN (>60); Globulin 2.4 g/dL (1.3-3.2); Glucose 84 mg/dl (74-100); HDL Cholesterol 53 mg/dl (40-60); Potassium 4.1 mmoL/L (3.5-5.1); Sodium 142 mmol/L (136-145); Total Protein,Serum 6.7 g/dl (6.3-8.2); Triglycerides 161 mg/dl (30-150); VLDL Cholesterol 32 mg/dL (0-40)
[2024-04-13 19:58] LABS: Thyroid Stimulating Hormone 0.94 uIU/mL (0.465-4.68)
[2024-04-13 22:06] LABS: HIV (1&2) Antibody Rapid NONREACTIVE (NONREACTIVE)
[2024-04-15 07:14] LABS: HCV Ab Non Reactive (Non Reactive)
== END 2024-04-13 23:59 | disposition home or self-care (01) ==
LOC: LAB.DROPOF 04-14 08:05
PROVIDERS: PCP Student in an Organized Health Care Education/Training Program; Visit Provider Student in an Organized Health Care Education/Training Program
DX: E55.9 Vitamin D deficiency, unspecified (principal); Z01.89 Encounter for other specified special examinations; Z11.4 Encounter for screening for human immunodeficiency virus [HIV]; Z11.59 Encounter for screening for other viral diseases; Z91.89 Other specified personal risk factors, not elsewhere classified
CPT/HCPCS: 80050; 80053; 80061; 82306; 84443; 85025; 86803; 87389

== ENCOUNTER 2025-04-27 14:37 | Outpatient (CLI) | payer OTHER, SELFPAY ==
--- NOTE | 2025-04-27 14:39 | XR_ITS ---
FINAL REPORT CLINICAL HISTORY: chest congestion with yellow/green sputum soa chest pain with back pain COMPARISON: 08/21/2020 FINDINGS: PA and lateral views of the chest were obtained. The cardiac and mediastinal silhouettes are within normal limits. The lungs are clear. There is no pleural effusion or pneumothorax. No acute osseous abnormality is identified. IMPRESSION: No radiographic evidence of acute cardiac or pulmonary disease. Reviewed, Interpreted and Dictated by Shabnam Wilde MD Transcribed by Nedra Tolliver Authenticated and [facility]
== END 2025-04-27 23:59 | disposition home or self-care (01) ==
LOC: RAD 14:38
PROVIDERS: Visit Provider Nurse Practitioner
DX: R09.89 Other specified symptoms and signs involving the circulatory and respiratory systems (principal); R06.02 Shortness of breath; M54.9 Dorsalgia, unspecified
CPT/HCPCS: 71046